=== PATIENT | female | born 1970 | race Caucasian/White ===

== ENCOUNTER → 2019-01-05 15:35 | Outpatient (CLI) | payer OTHER, SELFPAY ==
[2017-07-26 10:43] VITALS: BMI 26.4
== END ==
PROVIDERS: Family Provider Internal Medicine; PCP Internal Medicine; Referring Provider Otolaryngology Otolaryngology/Facial Plastic Surgery; Visit Provider Otolaryngology Otolaryngology/Facial Plastic Surgery
DX: J34.0 Abscess, furuncle and carbuncle of nose (principal)
CPT/HCPCS: 87070; 87077; 87205

== ENCOUNTER → 2019-07-04 15:41 | Outpatient (CLI) | payer OTHER, SELFPAY | PROVIDERS: Family Provider Internal Medicine; PCP Internal Medicine; Referring Provider Otolaryngology Otolaryngology/Facial Plastic Surgery; Visit Provider Otolaryngology Otolaryngology/Facial Plastic Surgery | DX: J02.9 Acute pharyngitis, unspecified (principal) | CPT/HCPCS: 87070; 87077 ==

== ENCOUNTER → 2024-04-20 | Outpatient (CLI) | payer SELFPAY | END | disposition home or self-care (01) | LOC: PSN 08:17 | PROVIDERS: PCP Internal Medicine; Referring Provider Internal Medicine; Visit Provider Internal Medicine | DX: R00.0 Tachycardia, unspecified (principal) | CPT/HCPCS: 93225; 93226 ==

== ENCOUNTER 2024-12-21 09:28 | Day surgery (SDC) | payer SELFPAY ==
[2024-12-21] MEDS: Lidocaine Jelly 2% 20 ML Syringe (URO-JET) 1 APPLIC (09:39)
[2024-12-21 09:41] VITALS: BP 134/77; PULSE 78; RESP 16; TEMP 36.9; O2SAT 100
== END 2024-12-21 10:10 | disposition home or self-care (01) ==
PROVIDERS: PCP Internal Medicine; Referring Provider Internal Medicine; Visit Provider Internal Medicine Gastroenterology
PROC: F00ZJWZ Instrumental Swallowing and Oral Function Assessment using Swallowing Equipment (ICD-10-PCS; CPT 43235; principal; 2024-12-21 09:25)
DX: R13.19 Other dysphagia (principal)
CPT/HCPCS: 91010

== ENCOUNTER 2025-04-02 05:23 | Day surgery (SDC) | payer SELFPAY ==
--- NOTE | 2025-03-28 15:18 | PAT.ANESEVAL ---
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 When Was Last Pacemaker Check QUESTION #4 FULL TEXT: You/Your Family Experience fever (hyperthermia) with Anesthesia Last Oral Intake Last Oral intake: Last Oral Intake NPO since Meds taken in AM with sips of water? Meds patient instructed to take am of surgery PONV PONV - youth program director: PONV - youth program director Female Yes 03/28/25 14:01 HX of Motion Sickness Yes 03/28/25 14:01 HX of N/V After Surgery Yes 03/28/25 14:01 Non-Smoker Yes 03/28/25 14:01 Duration of Surgery greater No 03/28/25 14:01 than 60 minutes Number of Risk Factors 4 03/28/25 14:01 PONV Score Severe Risk 03/28/25 14:01 Respiratory Assessment Respiratory Assessment - youth program director: Respiratory Tract Infection Hx - youth program director Hx Respiratory Tract Infection No 03/28/25 14:01 STOP Sleep Apnea STOP Sleep Apnea - youth program director: STOP Sleep Apnea - youth program director Hx Hypertension No 03/28/25 14:01 Hx Sleep Apnea No 03/28/25 14:01 CPAP BIPAP Do you snore loudly (louder Yes 03/28/25 14:01 than talking or can be heard Do you often feel tired/ Yes 03/28/25 14:01 fatigued/ sleepy during daytime? Has anyone observed you stop No 03/28/25 14:01 breathing during sleep? STOP Results Positive 03/28/25 14:01 QUESTION #5 FULL TEXT : Do you snore loudly (louder than talking or can be heard through closed doors)? 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 confused, unrespo /Reproduction History /Reproductive History - youth program director: /Reproductive Hx- youth program director Hx Now No 03/28/25 14:01 Gestational Age (in weeks): EDC: Hx Hx Para Hx Section SAB No 03/28/25 14:01 [facility], [facility] Medical History (Updated 03/28/25 @ 14:09 by Rosa Maria Phillips) Post-menopausal Wears glasses Wears contact lenses Arthritis Low iron Migraine headache Back pain Difficulty swallowing Gastric reflux Asthma History of pain when walking Non-smoker History of irregular heartbeat History of Holter monitoring Chest pain Osteopenia Home Medications ?Medication ?Instructions ?Recorded ?Last Taken ?Type ascorbic acid (vitamin C) 500 mg 500 mg PO QDAY 11/30/24 Unknown History capsule cholecalciferol (vitamin D3) 125 125 mcg PO QDAY 11/30/24 Unknown History mcg (5,000 unit) capsule mecobalamin (vitamin B12) 5,000 5,000 mcg PO DAILY 03/28/25 Unknown History mcg chewable tablet progesterone micronized 200 mg 225 mg PO QHS 03/28/25 Unknown History capsule Allergy/AdvReac Type Severity Reaction Status Date / Time No Known Allergies Allergy Verified 03/28/25 13:58 Family History Father Alcoholism Depression Mother Arthritis Rheumatoid arthritis Hypertension Respiratory disease Grandmother Cancer Surgical History (Updated 03/28/25 @ 14:09 by Rosa Maria Phillips) History of Hx of varicose vein ligation and stripping Social History Smoking Status: Never smoker alcohol intake: never substance use type: does not use what type of physical activity do you participate in: walking and weight training Audit: Pertinent Findings Pertinent Findings EKG Perinent findings: March 18, 2025. Sinus rhythm. Additional pertinent findings: Holter monitor. April 20, 2024. Base heart rate is normal sinus rhythm. No ventricular ectopic beats. Total of 9 SVE beats. No atrial fibrillation. Patient did not return a diary. Recommendation Anesthesia Recommendation Anesthesia recommendation: OPTIMIZED for anesthesia
[2025-04-02] VITALS (8 sets, daily range): BP systolic 118–135; BP diastolic 67–82; PULSE 65–72; RESP 16; TEMP 36.4–36.7; O2SAT 95–100; BMI 26.5
--- OUTSIDE RECORDS SUMMARY | 2025-04-02 05:26 | XMS RPT_ITS | CCD ---
Author Organization [facility] Care Team Providers Care Blocker [employer] Forms Name Role Phone Hebert ELKINSN, Kamila N Unavailable Unavailab le Hebert LAZARO, Kamila N Unavailable Unavailab le Hebert LAZARO, Kamila N Unavailable Unavailab Gisela Chauhan MD Primary Care Provider Gisela oCffey MD Primary Care Provider Gisela Coffey MD Primary Care Provider DR PERLA STANLEY DO Primary Care Unavailab CAROLANN Parmar MD Attending Unavail able Unavailable Primary Care Provider Unavailabl e PERLA STANLEY Referring Unavailable LIZETH ROSAS, DR SINHA Primary Care Physician [phone] Garcia FLAME CUTTING MACHINE OPERATOR.GROUP WORK PROGRAM DIRECTOR, Chery Unavailable Monserrat FLAME CUTTING MACHINE OPERATOR.HOUSE RN, Layla Unavailable Garcia FLAME CUTTING MACHINE OPERATOR.GROUP WORK PROGRAM DIRECTOR, Chery Unavailable Monserrat FLAME CUTTING MACHINE OPERATOR.HOUSE RN, Layla Unavailable Monserrat FLAME CUTTING MACHINE OPERATOR.HOUSE RN, Layla Unavailable Garcia FLAME CUTTING MACHINE OPERATOR.GROUP WORK PROGRAM DIRECTOR, Chery Unavailable Dr. Perla Stanley DO Primary Care Provider Dr. Perla Stanley DO Referring Provider Friend Dr. Alexx ROSAS Attending Provider Perla Stanley Referring Unavailable Alexx Garcia Attending Unavailable Perla Stanley Primary Care Unavailable Perla Stanley Referring Unavailable Perla Stanley Primary Care Unavailable Perla Stanley Attending Unavailable Lizeth, Perla Referring Unavailable Friend, Alexx Attending Unavailable Lizeth, Perla Primary Care Unavailable Lizeth, Perla Primary Care Unavailable Lizeth, Perla Referring Unavailable Friend, Alexx Attending Unavailable Lizeth, Perla Referring Unavailable Lizeth, Perla Primary Care Unavailable Lizeth, Perla Attending Unavailable Aubrey, [place] Attending Unavailable Lizeth, Perla Referring Unavailable Lizeth, Perla Primary Care Unavailable Lizeth, Perla Referring Unavailable Aubrey, [place] Attending Unavailable Lizeth, Perla Primary Care Unavailable Friend, Alexx Attending Unavailable Lizeth, Perla Primary Care Unavailable Lizeth, Perla Referring Unavailable Allergies Allergy Classification Reported Allergen(s) Allergy Type Date of Onset Reaction(s) Facility (12 sources) predniSONE Drug Allergy 1 Other: See Comments [facility] Work Phone: (12 sources) environmental [Other] Propensity to adverse reactions 5 [facility] Work Phone: (1 source) ALLERGIES NOT ON FILE; Translations: [ALLERGIES NOT ON FILE] Propensity to adverse reactions (disorder) [facility] 2 Repository Medications Current Medications Medication Drug Class(es) Dates Sig (Normalized) Sig (Original) albuterol 0.83 mg/ml inhalation solution (3 sources) beta2-Adrenergi c Agonist Start: 11-16-2022 End: 12-13-2023 take 2.5 mg by inhalation every four hours as needed albuterol (PROVENTIL) 2.5 mg /3 mL (0.083 %) nebulizer solution Use 3 mL via nebulizer every 4 hours as needed for wheezing/shortness of breath. Use over 5-15minutes. 75 mL 1 11/16/2022 12/13/2023 Discontinued Comment on above: Use 3 mL via nebuliz er every 4 hours as needed for wheezing/shortness of breath. Use over 5-15minutes. ascorbic acid 500 mg oral capsule (1 source) Vitamin C Start: 11-30-2024 take 1 capsule by mouth once daily Ascorbic Acid (Vitamin C) 500 mg capsule Active 500 mg PO daily November 30, 2024 12:00am cholecalciferol 0.125 mg oral capsule (1 source) Vitamin D Start: 11-30-2024 take 1 capsule by mouth once daily Cholecalciferol (Vitamin D3) 125 mcg (5,000 unit) capsule Active 125 ug PO daily November 30, 2024 12:00am COMPOUNDED PRESCRIPTION (12 sources) Start: 05-19-2018 COMPOUNDED PRESCRIPTION Dejon Franklin (Drink supplement--once daily) 05/19/2018 Active Start: 05-19-2018 COMPOUNDED PRE SCRIPTION Young Oleg Franklin (Drink supplement--once daily) 0 05/19/2018 Active Comment on above: Dejon Franklin (Drink supplement--once daily) cyclobenzaprine hydrochloride 10 mg oral tablet (12 sources) Muscle Relaxant Start: End: take 1 tablet by mouth every eight hours as needed cyclobenzaprine (FLEXERIL) 10 mg tablet Take 1 tablet by mouth three times daily as needed for muscle spasm. 30 tablet 2 11/16/2022 Active Comment on above: Take 1 tablet by randal th three times daily as needed for muscle spasm. doxycycline hyclate 100 mg oral tablet (1 source) Tetracycline-class Drug Start: End: take 1 tablet by mouth twice daily doxycycline (VIBRA-TABS) 100 mg tablet Take 1 tablet by mouth twice daily for 7 days. 14 tablet 0 11/24/2021 12/01/2021 Active Comment on above: Take 1 tablet by randal th twice daily for 7 days. drospirenone / Ethinyl Estradiol (15 sources) Progestin, Estrogen Start: 023 take 1 tablet by mouth once daily Drospirenone-Ethinyl Estradiol (LUIS 28) 3-0.02 mg per tablet Take 1 tablet by mouth once daily. active pills only, discard inactive pills 84 tablet 3 05/04/2023 Active Start: 08-12-2022 End: 05-04-2023 take 1 tablet by mouth once daily Drospirenone-Ethinyl Estradiol (LUIS 28) 3-0.02 mg per tablet Take 1 tablet by mouth once daily. active pills only, discard inactive pills 84 tablet 1 08/12/2022 05/04/2023 Discontinued Start: 08-12-2022 take 1 tablet by randal th once daily Drospirenone-Ethinyl Estradiol (LUIS 28) 3-0.02 mg per tablet Take 1 tablet by mouth once daily. active pills only, discard inactive pills 84 tablet 1 08/12/2022 Active Start: 04-28-2022 End: 08-12-2022 take 1 tablet by mouth once daily Drospirenone-Ethinyl Estradiol (LUIS 28) 3-0.02 mg per tablet take 1 tablet by mouth once daily ACTIVE PILLS ONLY, DISCARD INACTIVE PILLS 84 tablet 1 04/28/2022 08/12/2022 Discontinued Start: 08-18-2021 End: 04-28-2022 take 1 tablet by mouth once daily Drospirenone-Ethinyl Estradiol (LUIS 28) 3-0.02 mg per tablet Take 1 tablet by mouth once daily. active pills only, discard inactive pills 84 tablet 3 08/18/2021 04/28/2022 Discontinued Start: 08-18-2021 take 1 tablet by randal th once daily Drospirenone-Ethinyl Estradiol (LUIS 28) 3-0.02 mg per tablet Take 1 tablet by mouth once daily. active pills only, discard inactive pills 84 tablet 3 08/18/2021 Active Start: 11-23-2015 End: 11-30-2024 take 3 tablets by mouth once daily Drospirenone-Ethinyl Estradiol (Gianvi 3 Mg-0.02 Mg Tablet) 1 EACH tablet Discontinued 1 {tbl} PO DAILY November 23, 2015 12:00am November 30, 2024 9:56am Comment on above: Take 1 tablet by randal th once daily. active pills only, discard inactive pills take 1 tablet by randal th once daily ACTIVE PILLS ONLY, DISCARD INACTIVE PILLS famotidine 20 mg oral tablet (2 sources) Histamine-2 Receptor Antagonist Start: take 1 tablet by mouth once daily before mealtime Famotidine (Pepcid Ac) 20 mg tablet Active 20 mg PO daily November 30, 2024 12:00am Start: 04-13-2024 Pepcid 20 mg o ral tablet Dose : 20 mg = 1 tab(s), Oral, qDay, # 30 tab(s), 0 Refill(s) Start Date: 04/13/24 Status: Ordered Completed/Discontinued Medications Medication Drug Class(es) Dates Sig (Normalized) Sig (Original) azithromycin 250 mg oral tablet (1 source) Macrolide Antimicrobial Start: 07-26-2017 End: 07-31-2017 take 2 tablets by mouth once daily, then take 1 tablet by mouth once daily Azithromycin (Zithromax Z-Michael) 250 mg tablet Discontinued 250 mg PO .COMPLEX 6 July 26, 2017 1:00am July 30, 2017 1:00am July 31, 2017 1:06am 2 250 mg tabs on first day then 1 250mg tab daily next 4 days Ibuprofen (4 sources) Nonsteroidal Anti-inflammatory Drug End: 08-12-2022 ibuprofen (MOTRIN ORAL) Take by mouth. 08/12/2022 Discontinued (Other) End: 08-12-2022 ibuprofen (MOTRIN ORAL) Take by mouth. 0 08/12/2022 Discontinued (Other) ibuprofen (MOTRI N ORAL) Take by mouth. 0 Active Comment on above: Take by mouth. methylPREDNISolone 4 mg oral tablet (1 source) Corticosteroid Start: 2016 End: 2016 take 1 tablet by mouth once Methylprednisolone (Medrol (Michael)) 4 mg tablets,dose pack Discontinued 4 mg PO per package directions 21 July 26, 2017 1:00am July 30, 2017 1:00am July 31, 2017 1:06am naproxen 500 mg oral tablet (1 source) Nonsteroidal Anti-inflammatory Drug Start: 2015 End: 2024 take 1 tablet by mouth twice daily Naproxen 500 MG tablet Discontinued 500 mg PO TWICE A DAY November 23, 2015 12:00am November 30, 2024 9:50am Drug Treatment Unknown - unknown (1 source) No information available. Problems Active Problems Problem Classification Problem Date Documented Da te Episodic/Chronic Acute bronchitis (1 source) Acute bronchitis; Translations: [Acute bronchitis, unspecified] 08-08-2017 Episodic Chronic obstructive pulmonary disease and bronchiectasis (1 source) Bronchitis; Translations: [Bronchitis, not specified as acute or chronic] Episodic Diabetes mellitus without complication (4 sources) Type 2 diabetes mellitus without complication; Translations: [Type 2 diabetes mellitus without complications] Onset: 4 05-22-2024 Chronic Esophageal disorders (2 sources) Gastroesophageal reflux disease; Translations: [Gastro-esophageal reflux disease without esophagitis] Onset: 5 11-30-2024 Chronic Headache; including migraine (12 sources) Migraine; Translations: [Migraine, unspecified, not intractable, without status migrainosus] 07-27-2021 Chronic Menopausal disorders (1 source) Perimenopausal state; Translations: [Menopausal and female climacteric states] 11-08-2023 Chronic Nausea and vomiting (3 sources) Nausea; Translations: [Nausea] Onset: 5 11-30-2024 Episodic Nonspecific chest pain (1 source) Chest pain; Translations: [Chest pain, unspecified] Onset: Episodic Nutritional deficiencies (3 sources) Ascorbic acid deficiency; Translations: [Ascorbic acid deficiency] Onset: 5 11-30-2024 Episodic Other circulatory disease (1 source) Elevated blood-pressure reading without diagnosis of hypertension; Translations: [Elevated blood-pressure reading, without diagnosis of hypertension] 12-13-2023 Episodic Other gastrointestinal disorders (2 sources) Dysphagia; Translations: [Dysphagia, unspecified] 11-30-2024 Episodic Other gastrointestinal disorders (1 source) Dysphagia, unspecified; Translations: [Dysphagia, unspecified] Onset: Episodic Other lower respiratory disease (2 sources) Cough; Translations: [Cough] Episodic Other lower respiratory disease (1 source) Dyspnea on exertion; Translations: [Shortness of breath] 07-26-2017 Episodic Other non-traumatic joint disorders (1 source) Multiple joint pain; Translations: [Pain in unspecified joint] 12-13-2023 Episodic Other screening for suspected conditions (not mental disorders or infectious disease) (8 sources) Patient encounter status; Translations: [Encounter for screening mammogram for malignant neoplasm of breast] Episodic Other upper respiratory infections (1 source) Upper respiratory infection; Translations: [Acute upper respiratory infection, unspecified] 07-26-2017 Episodic Spondylosis; intervertebral disc disorders; other back problems (12 sources) Cervical disc disorder with radiculopathy; Translations: [Cervical disc disorder with radiculopathy, unspecified cervical region] 03-15-2011 Episodic Unclassified (2 sources) Patient encounter status 10-09-2024 Past or Other Problems Problem Classification Problem Date Documented Da te Episodic/Chronic Cardiac dysrhythmias (1 source) Tachycardia, unspecified; Translations: [Tachycardia, unspecified] Onset: 05-15-2024 Episodic Other bone disease and musculoskeletal deformities (13 sources) Osteopenia; Translations: [Other specified disorders of bone density and structure, unspecified site] Onset: 01-05-2012 07-27-2021 Episodic Other ear and sense organ disorders (3 sources) Otalgia, unspecified ear; Translations: [Otalgia, unspecified ear] Onset: 01-03-2017 01-03-2017 Episodic Other gastrointestinal disorders (1 source) Other dysphagia; Translations: [Other dysphagia] Onset: 12-26-2024 Episodic Other non-traumatic joint disorders (12 sources) Chronic pain of right upper limb; Translations: [Pain in right shoulder] Onset: 09-25-2018 05-29-2019 Episodic Otitis media and related conditions (2 sources) Serous otitis media; Translations: [Unspecified nonsuppurative otitis media, left ear] Onset: 01-03-2017 01-03-2017 Episodic Results Test Name Value Interpretation Reference Range Facility MR/PATAlejandrina 03-28-2025 MR/PAT.[facility] Medical Records Department [address] [place] [address] PAT - Anesthesia 03/28/25 1518 MR#: [id number] Acct: [id number] Name: AKUA KATZ Rep #: [id number] : 1970 54 From: Arnol Samuels MD PCP: Dr. 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 When Was Last Pacemaker Check QUESTION #4 FULL TEXT: You/Your Family Experience fever (hyperthermia) with Anesthesia Last Oral Intake Last Oral intake: Last Oral Intake NPO since Meds taken in AM with sips of water? Meds patient instructed to take am of surgery PONV PONV - truck supervisor: PONV - truck supervisor Female Yes 03/28/25 14:01 HX of Motion Sickness Yes 03/28/25 14:01 HX of N/V After Surgery Yes 03/28/25 14:01 Non-Smoker Yes 03/28/25 14:01 Duration of Surgery greater No 03/28/25 14:01 than 60 minutes Number of Risk Factors 4 03/28/25 14:01 PONV Score Severe Risk 03/28/25 14:01 Respiratory Assessment Respiratory Assessment - truck supervisor: Respiratory Tract Infection Hx - truck supervisor Hx Respiratory Tract Infection No 03/28/25 14:01 STOP Sleep Apnea STOP Sleep Apnea - truck supervisor: STOP Sleep Apnea - truck supervisor Hx Hypertension No 03/28/25 14:01 Hx Sleep Apnea No 03/28/25 14:01 CPAP BIPAP Do you snore loudly (louder Yes 03/28/25 14:01 than talking or can be heard Do you often feel tired/ Yes 03/28/25 14:01 fatigued/ sleepy during daytime? Has anyone observed you stop No 03/28/25 14:01 breathing during sleep? STOP Results Positive 03/28/25 14:01 QUESTION #5 FULL TEXT : Do you snore loudly (louder than talking or can be heard through closed doors)? Tobacco Use History Tobacco Use History - truck supervisor: Tobacco Use History - truck supervisor Tobacco Use Smoking Status Never smoker 03/28/25 14:01 Hx Tobacco Use No 03/28/25 14:01 Years Smoking Packs Smoked per Day Smoking Cessation Date was within the last 15 years Hx Smoking Cessation Date Hx Smoking Cessation Counseling Hematologic Medial History Hematologic Hx - truck supervisor: Hematologic Medical Hx - vocational placement specialist Hx of Blood Transfusion No 03/28/25 14:01 Hx of Transfusion in last 3 No 03/28/25 14:01 Months Date of Last Transfusion (if within last 3 months) Ever experience any problems No 03/28/25 14:01 with transfusion(s)? Specify any problems Hx of Preganancy in last 3 No 03/28/25 14:01 Months Nurse Filling Out Transfusion DSCHRIBER 03/28/25 14:01 Questions: Date: 03/28/25 03/28/25 14:01 Time: 14:03 08/28/25 14:01 Patient unable to answer at this time (ie. confused, unrespo /Reproductio n History /Reproductiv e History - truck supervisor: /Reproductiv e Hx- truck supervisor Hx Now No 03/28/25 14:01 Gestational Age (in weeks): EDC: Hx Hx Para Hx Section SAB No 03/28/25 14:01 [facility] Medical History (Updated 03/28/25 @ 14:09 by Rosa Maria Phillips) Post-menopausal Wears glasses Wears contact lenses Arthritis Low iron Migraine headache Back pain Difficulty swallowing Gastric reflux Asthma History of pain when walking Non-smoker History of irregular heartbeat History of Holter monitoring Chest pain Osteopenia Home Medications ???Medication ???Instructions ???Recorded ???Last Taken ???Type ascorbic acid (vitamin C) 500 mg 500 mg PO QDAY 11/30/24 Unknown Hi story capsule cholecalciferol (vitamin D3) 125 125 mcg PO QDAY 11/30/24 Unknown H istory mcg (5,000 unit) capsule mecobalamin (vitamin B12) 5,000 5,000 mcg PO DAILY 03/28/25 Unknow n History mcg chewable tablet progesterone micronized 200 mg 225 mg PO QHS 03/28/25 Unknown His tory capsule Allergy/AdvReac Type Severity Reaction Status Date / Time No Known Allergies Allergy Verified 03/28/25 13:58 Family History Father Alcoholism Depression Mother Arthritis Rheumatoid arthritis (more content not included)... Normal [facility] CNCOon 01-25-2025 CNCO Letter Text Normal [facility] Gastroenterology Visit Repor ton 01-03-2025 Gastroenterology Visit Report [facility] Gastroenterology [address] [place] [address] OFFICE VISIT Date of Service: 01/03/25 MR#: [id number] Acct: [id number] Name: AKUA KATZ Rep #: [id number] : 1970 Provider: Alexx Garcia DO Age/Sex: 54/F Location: [facility] [place] Status: Signed Intake Vital Signs 07/26/17 10:43 Height 5 ft 4 in Intake Visit Reasons: Test Result Allergies No Known Allergies Allergy (Verified 01/03/25 14:33) Medications ???Medication ???Instructions ???Recorded ???Confirmed ???Type ascorbic acid (vitamin C) 500 mg 500 mg PO QDAY 11/30/24 01/03/25 H istory capsule cholecalciferol (vitamin D3) 125 125 mcg PO QDAY 11/30/24 01/03/25 History mcg (5,000 unit) capsule famotidine 20 mg tablet (Pepcid AC) 20 mg PO QDAY 11/30/24 01/03/25 History PFSH Medical History Osteopenia Hypertension Family History Father Alcoholism Depression Mother Arthritis Rheumatoid arthritis Hypertension Respiratory disease Grandmother Cancer Social History Smoking Status: Never smoker alcohol intake: never substance use type: does not use what type of physical activity do you participate in: walking and weight training HPI HPI Details: AKUA KATZ, is a 54 F who presents to the office today for follow up. *BGI established 5.2.25 pt presents with worsening acid reflux. Is currently taking Pepcid 20mg and reports this is not effective for her symptoms. Reports that when she is laying down she feels like she is choking on acid and that it stays in her throat. manometry 5.23.25 normal OV 6.5.25 pt reports ongoing intermittent difficulty swallowing. Here to discuss test results. ROS Const Constitutional: No fatigue, fever(s) or weight change ENT ENT: Positive for difficulty swallowing Gastro GI: Positive for difficulty swallowing; No abdominal pain, belching, bloating, change in bowel habits, change in stool character, coffee ground emesis, constipation, cramping, diarrhea, heartburn, feeling full early, excessive flatus, incontinent of stools, Vomiting blood/hematemesis, Blood in stool, loose stools, Black,tarry stools, nausea/dyspepsia, pain with swallowing, vomiting or other Musc Musculoskeletal: Positive for back pain and sciatica; No joint pain Skin Skin: No yellowing of the eye or itchy eyes Psych Psychiatric: No anxiety and No depression Endo Endocrine: No fatigue or weight change Aller/Imm Allergy/Immunologic: No itchy eyes John/Lymp Hematologic/Lymphatic : No easy bleeding or easy bruising Assessment and Plan Assessment and Plan (1) Gastroesophageal reflux disease: (2) Dysphagia: Status: Acute (3) Nausea: Status: Acute (4) Vitamin C deficiency: Status: Acute Plan: Very pleasant 54-year-old with past medical history of intermittent esophageal dysphagia. She has no history of previous CVA, neck trauma, surgery. She does have a history of possible gastroesophageal reflux disease. She was placed on omeprazole for 3 months by her physician. She actually got better but when she stopped the medication when she stopped the medication her symptoms came back. Recommending esophageal manometry because her symptoms sound more like esophageal dysmotility disorder than reflux disease. If that is normal then we will do EGD with Sequeira study. Plan Her esophageal manometry was normal. We will set her up for an EGD with Sequeira study. Coding Level of Care Code Off vis,est,level 4 Diagnoses Gastroesophageal reflux disease K21.9 Dysphagia R13.10 Nausea R11.0 Vitamin C deficiency E54 01/03/25 1758 Date Alexx Membreno Signature: Date (if applicable) CC: Normal [facility] Gastroenterology Visit Repor ton 11-30-2024 Gastroenterology Visit Report [facility] Gastroenterology [address] [place] [address] OFFICE VISIT Date of Service: 11/30/24 MR#: [id number] Acct: [id number] Name: AKUA KATZ Rep #: [id number] : 1970 Provider: Alexx Garcia DO Age/Sex: 54/F Location: [facility] Status: Signed Intake Intake Visit Reasons: Acid reflux Allergies No Known Allergies Allergy (Verified 07/26/17 10:44) Medications ???Medication ???Instructions ???Recorded ???Confirmed ???Type ascorbic acid (vitamin C) 500 mg 500 mg PO QDAY 11/30/24 11/30/24 H istory capsule cholecalciferol (vitamin D3) 125 125 mcg PO QDAY 11/30/24 11/30/24 History mcg (5,000 unit) capsule famotidine 20 mg tablet (Pepcid AC) 20 mg PO QDAY 11/30/24 11/30/24 History PFSH Medical History (Updated 11/30/24 @ 11:[address] Coffey Friend, DO) Osteopenia Hypertension Family History (Updated 11/30/24 @ 10:29 by Aye Diaz) Father Alcoholism Depression Mother Arthritis Rheumatoid arthritis Hypertension Respiratory disease Grandmother Cancer Social History (Updated 11/30/24 @ 10:26 by Aye Diaz) Smoking Status: Never smoker alcohol intake: never substance use type: does not use what type of physical activity do you participate in: walking and weight training HPI HPI Details: AKUA KATZ, is a 54 F who presents to the office today for follow up. *BGI established 5.2.25 pt presents with worsening acid reflux. Is currently taking Pepcid 20mg and reports this is not effective for her symptoms. Reports that when she is laying down she feels like she is choking on acid and that it stays in her throat. ROS Const Constitutional: No fatigue, fever(s) or weight change ENT ENT: Positive for difficulty swallowing Gastro GI: Positive for heartburn, difficulty swallowing and nausea/dyspepsia; No abdominal pain, belching, bloating, change in bowel habits, change in stool character, coffee ground emesis, constipation, cramping, diarrhea, feeling full early, excessive flatus, incontinent of stools, Vomiting blood/hematemesis, Blood in stool, loose stools, Black,tarry stools, pain with swallowing, vomiting or other Musc Musculoskeletal: Positive for joint pain, back pain, stiffness, Arthritis and sciatica Skin Skin: No yellowing of the eye or itchy eyes Psych Psychiatric: No anxiety and No depression Endo Endocrine: No fatigue or weight change Aller/Imm Allergy/Immunologic: No itchy eyes John/Lymp Hematologic/Lymphatic : No easy bleeding or easy bruising Exam Const General: cooperative, healthy appearing, comfortable and no acute distress Orientation: alert, awake and oriented x3 Assessment and Plan Assessment and Plan (1) Gastroesophageal reflux disease: (2) Dysphagia: Status: Acute (3) Nausea: Status: Acute (4) Vitamin C deficiency: Status: Acute Plan: Very pleasant 54-year-old with past medical history of intermittent esophageal dysphagia. She has no history of previous CVA, neck trauma, surgery. She does have a history of possible gastroesophageal reflux disease. She was placed on omeprazole for 3 months by her physician. She actually got better but when she stopped the medication when she stopped the medication her symptoms came back. Recommending esophageal manometry because her symptoms sound more like esophageal dysmotility disorder than reflux disease. If that is normal then we will do EGD with Sequeira study. Orders: Orders ANCA Today E54 - Ascorbic acid deficiency, R11.0 - Nausea, R13.10 - Dysphagia, unspecified Celiac AB,Comprehensive Today E54 - Ascorbic acid deficiency, R11.0 - Nausea, R13.10 - Dysphagia, unspecified LDH Today E54 - Ascorbic acid deficiency, R11.0 - Nausea, R13.10 - Dysphagia, unspecified CRP Today E54 - Ascorbic acid deficiency, R11.0 - Nausea, R13.10 - Dysphagia, unspecified Erythrocyte Sed Rate Today E54 - Ascorbic acid deficiency, R11.0 - Nausea, R13.10 - Dysphagia, unspecified [facility] Misc. 2 Today E54 - Ascorbic acid deficiency, R11.0 - Nausea, R13.10 - Dysphagia, unspecified Comprehensive Metabolic Profil Today E54 - Ascorbic acid deficiency, R11.0 - Nausea, R13.10 - Dysphagia, unspecified CBC W/Diff, Automated Today E54 - Ascorbic acid deficiency, R11.0 - Nausea, R13.10 - Dysphagia, unspecified IBD Expanded Profile Today E54 - Ascorbic acid deficiency, R11.0 - Nausea, R13.10 - Dysphagia, unspecified [facility] Comprehensive Panel Today E54 - Ascorbic acid deficiency, R11.0 - Nausea, R13.10 - Dysphagia, unspecified Allergen, Food Profile 14 Today E54 - Ascorbic acid deficiency, R11.0 - Nausea, R13.10 - Dysphagia, unspecified Vitamin B12 Today E54 - Ascorbic acid deficiency, R11.0 - Nausea, R13.10 - Dysphagia, unspecified FOLATES,SERUM (FOLIC ACID) Today E54 - Ascorbic acid deficiency, R11.0 (more content not included)... [facility] AKUA KATZ ([id number]) 1970 F Date Time Provider Department 09/27/24 ROSSY FLANAGAN During your visit today, we recorded the following information about you: Elayne Shelton 09/27/2024 11:20 AM Signed Patient coming in for Annual with she would like to have her mammogram on same day but order will . Could you please add her order. Thank you Martina Graham RN 09/27/2024 11:32 AM Signed Screening mammogram order pending. Please file and will forward to PSS to get Pt scheduled. MANUEL Burns Karmon, MD 09/27/2024 11:36 AM Signed Filed. MD Najma Castelan Stephanie 09/28/2024 10:59 AM Signed Left message with patient's spouse to return call. When she calls, please schedule mammogram. [facility] submitted. Elayne Garcia 11/26/2024 9:53 AM Signed Spoke with patient, patient stated that she does not want to schedule mammogram order at this time Allergies As of Date: 09/27/2024 Noted Allergy Reaction environmental [Other] 04/08/2005 Comments: seasonal PREDNISONE 10/26/2010 14 - Other: See Comments Comments: Migraine headaches Date Reviewed: 11/08/2023 Reviewed by: Parul Aj MA - Fully Assessed Primary Visit Diagnosis:Breast screening [Z12.39] Order(s):TOÑA SCREENING W ADRIEL [[id number]] Order #: [id number] FUTURE Prescriptions as of 12/29/2024 - Drospirenone-Ethinyl Estradiol (LUIS 28) 3-0.02 mg per tablet Take 1 tablet by mouth once daily. active pills only, discard inactive pills - cyclobenzaprine (FLEXERIL) 10 mg tablet Take 1 tablet by mouth three times daily as needed for muscle spasm. - COMPOUNDED PRESCRIPTION [facility] (Drink supplement--once daily) Problem List As Of Date 09/27/2024 Noted Resolved Cervical disc disorder with radiculopathy [M50.* Migraine headache [G43.909] Osteopenia [M85.80] 01/05/2012 Chronic right shoulder pain [M25.511, G89.29] 09/25/2018 Encounter Status:Closed by ELAYNE SHELTON on 12/29/24 [facility] 07-16-2024 [facility] Telephone (INTMWS) AUKA KATZ ([id number]) 1970 F Date Time Provider Department 07/16/24 GISELA COFFEY INTWS During your visit today, we recorded the following information about you: Gisela Coffey MD 07/16/2024 4:10 PM Signed Received a call from Dr. Perla Stanley's office to discuss Holter monitor and EKG. Started following with Dr. Stanley this year. Fatigue and palpitations Has to stop what she is doing to rest and restore. Sleeps, exercises. Allergies As of Date: 07/16/2024 Noted Allergy Reaction environmental [Other] 04/08/2005 Comments: seasonal PREDNISONE 10/26/2010 14 - Other: See Comments Comments: Migraine headaches Date Reviewed: 11/08/2023 Reviewed by: Parul Aj MA - Fully Assessed Prescriptions as of 10/18/2024 - Drospirenone-Ethinyl Estradiol (LUIS 28) 3-0.02 mg per tablet Take 1 tablet by mouth once daily. active pills only, discard inactive pills - cyclobenzaprine (FLEXERIL) 10 mg tablet Take 1 tablet by mouth three times daily as needed for muscle spasm. - COMPOUNDED PRESCRIPTION [facility] (Drink supplement--once daily) Problem List As Of Date 07/16/2024 Noted Resolved Cervical disc disorder with radiculopathy [M50.* Migraine headache [G43.909] Osteopenia [M85.80] 01/05/2012 Chronic right shoulder pain [M25.511, G89.29] 09/25/2018 Encounter Status:Closed by GISELA COFFEY on 10/18/[address] [facility] [address] CARDIAC SCORING WO IV CON TRASTon 05-22-2024 CT CARDIAC SCORING WO IV CONTRAST Interpreted By: Leonardo Castro, STUDY: CT CARDIAC SCORING WO IV CONTRAST; 05/22/2024 10:57 am INDICATION: Signs/Symptoms:CARDIA C SCREENING HIGH RISK CAD TYPE 2 DM. ,E11.9 Type 2 diabetes mellitus without complications (Multi) COMPARISON: None. ACCESSION NUMBER(S): [id number] ORDERING CLINICIAN: PERLA STANLEY TECHNIQUE: Using prospective ECG gating, CT scan of the coronary arteries was performed without intravenous contrast. Coronary calcium scoring was performed according to the method of Agatston. FINDINGS: The score and distribution of calcium in the coronary arteries is as follows: LM 0 LAD 0 LCx 0 RCA 0 Total 0 The visualized mid/lower ascending thoracic aorta measures 3.1 cm in diameter. The heart is normal in size. No pericardial effusion is present. No gross evidence of mediastinal or hilar lymphadenopathy or masses is identified. The visualized segments of the lungs are normally expanded. The visualized subdiaphragmatic structures appear intact. IMPRESSION: 1. Coronary artery calcium score of 0*. *Coronary artery calcium scoring may be helpful in predicting the risk for future coronary heart disease events. According to the [place] [employer] Clinical Expert Consensus Task Force, such testing provides important prognostic information in patients with more than one coronary heart disease risk factor. The coronary artery calcium score correlates with the annual risk of a non-fatal myocardial infarction or coronary heart disease . Coronary artery score Annual Risk 0-99 0.4% 100-399 1.3% >400 2.4% These three breakpoints correspond to lower, intermediate and high risk states for future coronary events. Such information should be used, along with appropriate clinical judgment, to make decisions regarding the intensity of risk factor management strategies to treat blood lipids and to modify other non-lipid coronary risk factors. Reference: Crys P et al. Circulation. 2007; 115:402-426 MACRO: None Signed by: Leonardo Castro 05/23/2024 8:28 AM Dictation workstation: [id number] [facility] .Auto Diffon 04-13-2024 Basophil, Absolute 0.1 10 3/mcL Normal 0.0-0.2 [facility] Comment on above: Performed By: #### C TROY, DAVION DEJESUSS, MDW, GFR, ANEU, BMP #### [address] [address] Basophils/100 WBC (Bld) 0.8 % Normal 0.0-2.5 [facility] Comment on above: Performed By: #### C BC, OLEG, DAVIONS, MDW, GFR, ANEU, BMP #### [address] [address] Eosinophil, Absolute 0.1 10 3/mcL Normal 0.0-0.4 [facility] Comment on above: Performed By: #### C BC, ADIFF, TROPHS, MDW, GFR, ANEU, BMP #### [address] [address] Eosinophils/100 WBC (Bld) 0.9 % Normal 0.0-7.0 [facility] Comment on above: Performed By: #### C BC, ADALEXANDRA, TROPHS, MDW, GFR, ANEU, BMP #### [address] [address] Lymphocyte, Absolute 1.6 10 3/mcL Normal 0.8-3.9 [facility] Comment on above: Performed By: #### C BC, ADIFF, TROPHS, MDW, GFR, ANEU, BMP #### [address] [address] Lymphocytes/100 WBC (Bld) 19.9 % Normal 10.0-50.0 [facility] Comment on above: Performed By: #### C OLEG SIMMONS TROPHS, MDW, GFR, ANEU, BMP #### [address] [address] Monocyte, Absolute 0.4 10 3/mcL Normal 0.2-1.0 [facility] Comment on above: Performed By: #### C OLEG SIMMONS TROPHS, MDW, GFR, ANEU, BMP #### [address] [address] Monocytes/100 WBC (Bld) 5.1 % Normal 1.7-13.0 [facility] Comment on above: Performed By: #### C OLEG SIMMONS TROPHS, MDW, GFR, ANEU, BMP #### [address] [address] Neutrophils/100 WBC (Bld) 73.3 % Normal 37.0-80.0 [facility] Comment on above: Performed By: #### C OLEG SIMMONS TROPHS, MDW, GFR, ANEU, BMP #### [address] [address] .GFRon 04-13-2024 GFR Non- 101 ml/min/1.73sqm Normal [facility] Comment on above: Result Comment: GFR Population mean for , Non- Americans Ages 20-29 = 116 mL/min/1.73 sq.m. Ages 30-39 = 107 mL/min/1.73 sq.m. Ages 40-49 = 99 mL/min/1.73 sq.m. Ages 50-59 = 93 mL/min/1.73 sq.m. Ages 60-69 = 85 mL/min/1.73 sq.m. Ages 70+ = 75 mL/min/1.73 sq.m. Chronic Kidney Disease: Less than 60 mL/min/1.73 square meters End Stage Renal Disease: Less than 15 mL/min/1.73 square meters Performed By: #### C OLEG SIMMONS TROPHS, MDW, GFR, ANEU, BMP #### [address] [address] GFR 122 ml/min/1.73sqm Normal [facility] Comment on above: Result Comment: GFR Population mean for , Non- Americans Ages 20-29 = 116 mL/min/1.73 sq.m. Ages 30-39 = 107 mL/min/1.73 sq.m. Ages 40-49 = 99 mL/min/1.73 sq.m. Ages 50-59 = 93 mL/min/1.73 sq.m. Ages 60-69 = 85 mL/min/1.73 sq.m. Ages 70+ = 75 mL/min/1.73 sq.m. Chronic Kidney Disease: Less than 60 mL/min/1.73 square meters End Stage Renal Disease: Less than 15 mL/min/1.73 square meters Performed By: #### C TROY, OLEG, DAVIONS, MDW, GFR, ANEU, BMP #### [address] [address] .MDWon 04-13-2024 Monocyte Distribution Width 21.30 High 0.00-20.00 [facility] Comment on above: Result Comment: For adults in ED, MDW>20.0 may be associated with a higher risk of sepsis during the first 12hrs of hospital admission Performed By: #### C OLEG SIMMONS TROPHS, MDW, GFR, ANEU, BMP #### [address] [address] .NEUABSon 04-13-2024 Neutrophil, Absolute 5.7 10 3/mcL Normal 2.9-6.2 [facility] Comment on above: Performed By: #### C BC, DAVION DEJESUSS, MDW, GFR, ANEU, BMP #### [address] [address] BMPon 04-13-2024 BUN/Creatinine Ratio 24 ratio Normal 7-27 [facility] Comment on above: Performed By: #### C BC, OLEG, DAVIONS, MDW, GFR, ANEU, BMP #### [address] [address] Calcium [Mass/Vol] 9.8 mg/dL Normal 8.4-10.2 [facility] Comment on above: Performed By: #### C OLEG SIMMONS TROPHS, MDW, GFR, ANEU, BMP #### [address] [address] Chloride [Moles/Vol] 102 mmol/L Normal 98-107 [facility] Comment on above: Performed By: #### C OLEG SIMMONS TROPHS, MDW, GFR, ANEU, BMP #### [address] [address] CO2 [Moles/Vol] 29 mmol/L Normal 22-29 [facility] Comment on above: Performed By: #### C OLEG SIMMONS TROPHS, MDW, GFR, ANEU, BMP #### [address] [address] Creatinine [Mass/Vol] 0.62 mg/dL Normal 0.55-1.02 [facility] Comment on above: Result Comment: Test ing performed on Siemens Dimension EXL analyzer using a modified kinetic Luzmaria technique. Performed By: #### C OLEG SIMMONS TROPHS, MDW, GFR, ANEU, BMP #### [address] [address] Electrolyte Balance 7.0 mEq/L Normal 4.0-15.[address] [facility] Comment on above: Performed By: #### C OLEG SIMMONS TROPHS, MDW, GFR, ANEU, BMP #### [address] [address] Glucose [Mass/Vol] 95 mg/dL Normal 70-105 [facility] Comment on above: Performed By: #### C OLEG SIMMONS TROPHS, MDW, GFR, ANEU, BMP #### [address] [address] Potassium [Moles/Vol] 5.0 mmol/L Normal 3.5-5.1 [facility] Comment on above: Performed By: #### C OLEG SIMMONS TROPHS, MDW, GFR, ANEU, BMP #### [address] [address] Sodium [Moles/Vol] 138 mmol/L Normal 136-145 [facility] Comment on above: Performed By: #### C TROY, JEN DEJESUS, W, GFR, ANEU, BMP #### [address] [address] Urea nitrogen [Mass/Vol] 15 mg/dL Normal 7-18 [facility] Comment on above: Performed By: #### C TROY, JEN DEJESUS, W, GFR, ANEU, BMP #### [address] [address] CBCon 04-13-2024 Erythrocyte distribution width (RBC) [Ratio] 13.4 % Normal 11.5-14.5 [facility] Comment on above: Performed By: #### C OLEG SIMMONS TROPHS, MDW, GFR, ANEU, BMP #### [address] [address] Hematocrit (Bld) [Volume fraction] 40.4 % Normal 37.0-47.0 [facility] Comment on above: Performed By: #### C OLEG SIMMONS TROPHS, W, GFR, ANEU, BMP #### [address] [address] Hgb 13.7 G/dL Normal 12.0-16.0 [facility] Comment on above: Performed By: #### C OLEG SIMMONS TROPHS, MDW, GFR, ANEU, BMP #### [address] [address] MCH (RBC) [Entitic mass] 30.3 pg Normal 27.0-31.2 [facility] Comment on above: Performed By: #### C OLEG SIMMONS TROPHS, W, GFR, ANEU, BMP #### [address] [address] MCHC 34.0 G/dL Normal 33.0-37.0 [facility] Comment on above: Performed By: #### C TROY, OLEG, DAVIONS, MDW, GFR, ANEU, BMP #### [address] [address] MCV (RBC) [Entitic vol] 89.1 fL Normal 80.0-94.0 [facility] Comment on above: Performed By: #### C TROY, OLEG, DAVIONS, MDW, GFR, ANEU, BMP #### [address] [address] Platelet 340 10 3/mcL Normal 130-400 [facility] Comment on above: Performed By: #### C TROY, OLEG, DAVIONS, MDW, GFR, ANEU, BMP #### [place] [address] Platelet mean volume (Bld) [Entitic vol] 7.9 fL Normal 7.4-10.4 [facility] Comment on above: Performed By: #### C TROY, JEN DEJESUS, MDW, GFR, ANEU, BMP #### [address] [address] RBC 4.54 10 6/mcL Normal 4.20-5.40 [facility] Comment on above: Performed By: #### C TROY, OLEG, DAVIONS, MDW, GFR, ANEU, BMP #### [address] [address] WBC 7.8 10 3/mcL Normal 4.6-10.8 [facility] Comment on above: Performed By: #### C TROY, OLEG, DAVIONS, MDW, GFR, ANEU, BMP #### [address] [address] LABORATORYOrdered By: SYSTEM SYSTEM on 04-13-2024 Troponin I.cardiac DL <= 0.01 ng/mL [Mass/Vol] ng/L Normal 0 - 51 ng/L AO ADM SS Comment on above: Interpretive Data: H igh Sensitive Troponin I Reference Ranges: Female: 0-51 ng/L Male: 0-76 ng/L Testing performed on Dimension EXL using a homogeneous sandwich chemiluminescent immunoassay based on MagForce technology. Basophils (Bld) [#/Vol] 0.1 103/mcL Normal 0.0 - 0.2 10^3/mcL AO Workflow SS Basophils/100 WBC (Bld) 0.8 % Normal 0.0 - 2.5 % AO Workflow SS Calcium [Mass/Vol] 9.8 mg/dL Normal 8.4 - 10. 2 mg/dL AO ADM SS Chloride [Moles/Vol] 102 mmol/L Normal 98 - 10 7 mmol/L AO ADM SS CO2 [Moles/Vol] 29 mmol/L Normal 22 - 29 mmol/L AO ADM SS Creatinine [Mass/Vol] 0.62 mg/dL Normal 0.55 - 1.02 mg/dL AO ADM SS Comment on above: Interpretive Data: T esting performed on [employer] Dimension EXL analyzer using a modified kinetic Luzmaria technique. Electrolyte Balance 7.0 mEq/L Normal 4.0 - 15 .0 mEq/L AO ADM SS Eosinophil, Absolute 0.1 103/mcL Normal 0.0 - 0 .4 10^3/mcL AO Workflow SS Eosinophils/100 WBC (Bld) 0.9 % Normal 0.0 - 7.0 % AO Workflow SS Erythrocyte distribution width (RBC) [Ratio] 13.4 % Normal 11.5 - 14.5 % AO Workflow SS GFR/1.73 sq M.predicted among blacks MDRD (S/P/Bld) [Vol rate/Area] 122 ml/min/1.73sqm Invalid Interpretation Code AO Chemistry S Comment on above: Interpretive Data: GFR Population mean for , Non- Americans Ages 20-29 = 116 mL/min/1.73 sq.m. Ages 30-39 = 107 mL/min/1.73 sq.m. Ages 40-49 = 99 mL/min/1.73 sq.m. Ages 50-59 = 93 mL/min/1.73 sq.m. Ages 60-69 = 85 mL/min/1.73 sq.m. Ages 70+ = 75 mL/min/1.73 sq.m. Chronic Kidney Disease: Less than 60 mL/min/1.73 square meters End Stage Renal Disease: Less than 15 mL/min/1.73 square meters GFR/1.73 sq M.predicted among non-blacks MDRD (S/P/Bld) [Vol rate/Area] 101 ml/min/1.73sqm Invalid Interpretation Code AO Chemistry S Comment on above: Interpretive Data: GFR Population mean for , Non- Americans Ages 20-29 = 116 mL/min/1.73 sq.m. Ages 30-39 = 107 mL/min/1.73 sq.m. Ages 40-49 = 99 mL/min/1.73 sq.m. Ages 50-59 = 93 mL/min/1.73 sq.m. Ages 60-69 = 85 mL/min/1.73 sq.m. Ages 70+ = 75 mL/min/1.73 sq.m. Chronic Kidney Disease: Less than 60 mL/min/1.73 square meters End Stage Renal Disease: Less than 15 mL/min/1.73 square meters Glucose [Mass/Vol] 95 mg/dL Normal 70 - 105 mg/dL AO ADM SS Hematocrit (Bld) [Volume fraction] 40.4 % Normal 37.0 - 47.0 % AO Workflow SS Hemoglobin (Bld) [Mass/Vol] 13.7 G/dL Normal 12.0 - 16.0 G/dL AO Workflow SS Lymphocytes (Bld) [#/Vol] 1.6 103/mcL Normal 0.8 - 3.9 10^3/mcL AO Workflow SS Lymphocytes/100 WBC (Bld) 19.9 % Normal 10.0 - 50.0 % AO Workflow SS MCH (RBC) [Entitic mass] 30.3 pg Normal 27.0 - 31.2 pg AO Workflow SS MCHC 34.0 G/dL Normal 33.0 - 37.0 G/dL AO Workflow SS MCV (RBC) [Entitic vol] 89.1 fL Normal 80.0 - 94.0 fL AO Workflow SS Monocyte distribution width Auto (Bld) [Entitic vol] 21.30 1 High 0.00 - 20.00 AO Workflow SS Comment on above: Result Comment: For adults in ED, MDW>20.0 may be associated with a higher risk of sepsis during the first 12hrs of hospital admission Monocytes (Bld) [#/Vol] 0.4 103/mcL Normal 0.2 - 1.0 10^3/mcL AO Workflow SS Monocytes/100 WBC (Bld) 5.1 % Normal 1.7 - 13.0 % AO Workflow SS Neutrophils (Bld) [#/Vol] 5.7 103/mcL Normal 2.9 - 6.2 10^3/mcL AO Workflow SS Neutrophils/100 WBC (Bld) 73.3 % Normal 37.0 - 80.0 % AO Workflow SS Platelet mean volume (Bld) [Entitic vol] 7.9 fL Normal 7.4 - 10.4 fL AO Workflow SS Platelets (Bld) [#/Vol] 340 103/mcL Normal 130 - 400 10^3/mcL AO Workflow SS Potassium [Moles/Vol] 5.0 mmol/L Normal 3.5 - 5.1 mmol/L AO ADM SS RBC (Bld) [#/Vol] 4.54 106/mcL Normal 4.20 - 5.4 0 10^6/mcL AO Workflow SS Sodium [Moles/Vol] 138 mmol/L Normal 136 - 145 mmol/L AO ADM SS Troponin I.cardiac DL <= 0.01 ng/mL [Mass/Vol] ng/L Normal 0 - 51 ng/L AO ADM SS Comment on above: Interpretive Data: H igh Sensitive Troponin I Reference Ranges: Female: 0-51 ng/L Male: 0-76 ng/L Testing performed on Dimension EXL using a homogeneous sandwich chemiluminescent immunoassay based on [employer] technology. Urea nitrogen [Mass/Vol] 15 mg/dL Normal 7 - 18 mg/dL AO ADM SS Urea nitrogen/Creatinine [Mass ratio] 24 ratio Normal 7 - 27 ratio AO ADM SS WBC (Bld) [#/Vol] 7.8 103/mcL Normal 4.6 - 10.8 10^3/mcL AO Workflow SS [facility] 04-13-2024 High Sensitivity Troponin I <4 Normal [address] [place] [address] Comment on above: Result Comment: High Sensitive Troponin I Reference Ranges: Female: 0-51 ng/L Male: 0-76 ng/L Testing performed on Dimension EXL using a homogeneous sandwich chemiluminescent immunoassay based on [employer] technology. Performed By: #### T [facility] #### [address] [address] High Sensitivity Troponin I <4 Normal 0-51 [facility] Comment on above: Result Comment: High Sensitive Troponin I Reference Ranges: Female: 0-51 ng/L Male: 0-76 ng/L Testing performed on [employer] using a homogeneous sandwich chemiluminescent immunoassay based on [employer] technology. Performed By: #### C TROY, OLEG, JEN, MDW, GFR, ANEU, BMP #### [place] [id number] [place], [place] [address] XR CHEST 1 VIEWon 04-13-2024 XR CHEST 1 VIEW ORIGINAL EXAMINATION: ONE XRAY VIEW OF THE CHEST 04/13/2024 1:32 pm COMPARISON: None. HISTORY: ORDERING SYSTEM PROVIDED HISTORY: Reason for Exam: chest pain FINDINGS: The lungs are without acute focal process. There is no effusion or pneumothorax. The cardiomediastinal silhouette is without acute process. The osseous structures are without acute process. IMPRESSION: No acute process. Interpreted by: Dave Pizano DO Preliminary Report By: Dave Pizano DO Electronically signed By Dave Pizano DO Dictated Date: 04/13/2024 1:54:39 PM Prelim Date: 04/13/2024 1:54:55 PM Sign Date: 04/13/2024 1:54:55 PM Ordering Provider: JORGITO TUCKER Normal [facility] BY IFA SCREENOrdered By: Parul Crook on 11-15-2023 Interpretation and review of laboratory results Abnormal [facility] Nuclear Ab pattern (S) [Interp] Nuclear homogeneous [facility] Nuclear Ab Ql (S) Positive Abnormal Negative [facility] Comment on above: Anti-nuclear antibod y test is used as an aid in diagnosis of systemic autoimmune diseases. Where positive and clinically warranted, follow-up using disease-specific testing is recommended. Low positive titers are not uncommon with advanced age, certain chronic infections, and malignancies among others. Test methodology: Indirect fluorescence immunoassay (IFA) using HEp-2 cells. Nuclear Ab Ql (S) 1:80 [facility] 25-hydroxyvitamin D3 [Mass/V ol]on 11-12-2023 Interpretation and review of laboratory results Normal [facility] The reference range interval was based on an analysis of samples from healthy adults and may not pertain to children from 0-18 years old. [facility] C-REACTIVE PROTEIN (CRP)on 0 11-12-2023 CRP [Mass/Vol] 0.4 mg/dL NINF - 0.9 mg/dL [facility] CBC panel Auto (Bld)on 11-11 Erythrocyte distribution width (RBC) [Ratio] 12.2 % 11.5 - 15.0 % [facility] Hematocrit (Bld) [Volume fraction] 40.7 % 36.0 - 46.0 % [facility] Hemoglobin (Bld) [Mass/Vol] 13.3 g/dL 11.5 - 15.5 g/dL [facility] Interpretation and review of laboratory results Abnormal [facility] MCH (RBC) [Entitic mass] 28.7 pg 26.0 - 34.0 pg [facility] MCHC (RBC) [Mass/Vol] 32.7 g/dL 30.5 - 36.0 g/dL [facility] MCV (RBC) [Entitic vol] 87.7 fL 80.0 - 100.0 fL [facility] Nucleated RBC (Bld) [#/Vol] NINF [facility] Platelet mean volume (Bld) [Entitic vol] 9.7 fL 9.0 - 12.7 fL [facility] Platelets (Bld) [#/Vol] 408 10*3/uL High [facility] RBC (Bld) [#/Vol] 4.64 10*6/uL 3.90 - 5.2 0 m/uL [facility] WBC (Bld) [#/Vol] 8.16 10*3/uL [facility] Comprehensive metabolic 2000 panelon 11-12-2023 Albumin [Mass/Vol] 4.4 g/dL 3.9 - 4.9 g/dL [facility] ALP [Catalytic activity/Vol] 92 U/L 34 - 123 U/L [facility] ALT [Catalytic activity/Vol] 18 U/L 7 - 38 U/L [facility] Anion gap [Moles/Vol] 12 mmol/L 9 - 18 mmol/L [facility] AST [Catalytic activity/Vol] 17 U/L 13 - 35 U/L [facility] Bilirubin [Mass/Vol] 0.9 mg/dL 0.2 - 1 .3 mg/dL [facility] Calcium [Mass/Vol] 10.1 mg/dL 8.5 - 10. 2 mg/dL [facility] Chloride [Moles/Vol] 103 mmol/L 97 - 10 5 mmol/L [facility] CO2 [Moles/Vol] 26 mmol/L 22 - 30 mmol/L [facility] Creatinine [Mass/Vol] 0.67 mg/dL 0.58 - 0.96 mg/dL [facility] GFR/1.73 sq M.predicted among non-blacks MDRD (S/P/Bld) [Vol rate/Area] 105 mL/min/{1.73_m2} - PINF [facility] Comment on above: Estimated Glomerular Filtration Rate (eGFR) is calculated using the 2020 CKD-EPI creatinine equation. This equation utilizes serum creatinine, sex, and age as parameters. The creatinine assay has traceable calibration to isotope dilution-mass spectrometry. Refer to KDIGO guidelines for clinical interpretation. In patients with unstable renal function, e.g. those with acute kidney injury, the eGFR may not accurately reflect actual GFR. Glucose [Mass/Vol] 105 mg/dL High 74 - 99 mg/dL [facility] Comment on above: The [place] Di[employer] (ADA) provides guidance for cutoff values for fasting glucose and random glucose. The ADA defines fasting as no caloric intake for at least 8 hours. Fasting plasma glucose results between 100 to 125 mg/dL indicate increased risk for diabetes (prediabetes). Fasting plasma glucose results greater than or equal to 126 mg/dL meet the criteria for diagnosis of diabetes. In the absence of unequivocal hyperglycemia, results should be confirmed by repeat testing. In a patient with classic symptoms of hyperglycemia or hyperglycemic crisis, random plasma glucose results greater than or equal to 200 mg/dL meet the criteria for diagnosis of diabetes. Reference: Standards of Medical Care in Diabetes 2016, [place] [employer]. Diabetes Care. 2016.39(Suppl 1). Potassium [Moles/Vol] 4.2 mmol/L 3.7 - 5.1 mmol/L [facility] Protein [Mass/Vol] 7.4 g/dL 6.3 - 8.0 g/dL [facility] Center Sodium [Moles/Vol] 141 mmol/L 136 - 144 mmol/L [facility] Urea nitrogen [Mass/Vol] 15 mg/dL 7 - 21 mg/dL [facility] ESR Westergren method (Bld) [Velocity]on 11-12-2023 ESR (Bld) [Velocity] 8 mm/h [facility] Interpretation and review of laboratory results Normal [facility] Lipid 1996 panelon Cholesterol [Mass/Vol] 181 mg/dL NINF - 200 mg/dL [facility] Comment on above: <200 mg/dL, Desirabl e 200-239 mg/dL, Borderline high >239 mg/dL, High Cholesterol in HDL [Mass/Vol] 57 mg/dL 39 - PINF mg/dL [facility] Comment on above: 40-59 mg/dL, Accepta ble >59 mg/dL, High: Negative risk factor for coronary heart disease <40 mg/dL, Low: Positive risk factor for coronary heart disease Cholesterol in LDL [Mass/Vol] 102 mg/dL High NINF - 100 mg/dL [facility] Comment on above: <100 mg/dL, Optimal 100-129 mg/dL, Near optimal/above optimal 130-159 mg/dL, Borderline high 160-189 mg/dL, High >189 mg/dL, Very high Secondary prevention optimal LDL Cholesterol levels are recommended to be < 70 mg/dL Cholesterol in LDL/Cholesterol in HDL [Mass ratio] 1.79 {ratio} NINF - 2.54 [facility] Comment on above: Reference: 1. National Cholesterol Education Program ATP III Guideline At-A-Glance Quick Desk Reference: National Heart, Lung, and Blood [place]. National Institutes of Health. 2001: NIH Publication No. 01-3305. 2. An International Atherosclerosis Society position paper: global recommendations for the management of dyslipidemia: executive summary, Atherosclerosis. 2014: 232(2):410-413. Cholesterol in VLDL [Mass/Vol] 22 mg/dL NINF - 30 mg/dL [facility] Cholesterol non HDL [Mass/Vol] 124 mg/dL NINF - 130 mg/dL [facility] Comment on above: <130 mg/dL, Optimal 130-159 mg/dL, Near optimal/above optimal 160-189 mg/dL, Borderline high 190-219 mg/dL, High >219 mg/dL, Very high Secondary prevention optimal non HDL Cholesterol levels are recommended to be <100 mg/dL Cholesterol.total/Cho lesterol in HDL [Mass ratio] 3.18 {ratio} NINF - 5.10 [facility] Fasting Time 12 hrs [facility] Triglyceride [Mass/Vol] 112 mg/dL NINF - 150 mg/dL [facility] Comment on above: <150 mg/dL, Normal 150-199 mg/dL, Borderline high 200-499 mg/dL, High >499 mg/dL, Very high No Panel Informationon 04-13 -2024 Interpretation and review of laboratory results Normal [facility] Interpretation and review of laboratory results Abnormal [facility] Interpretation and review of laboratory results Normal [facility] RHEUMATOID FACTOR BLon 11-11 Rheumatoid factor Qn NINF [facility] T3 FREE BLDon 11-12-2023 Free T3 [Mass/Vol] 3.2 pg/mL 2.3 - 4.1 pg/mL [facility] T4 FREE/FREE THYROXon 2023 Free T4 [Mass/Vol] 1.2 ng/dL 0.9 - 1.7 ng/dL [facility] TSH BLDon 11-12-2023 TSH Qn 1.580 m[IU]/L [facility] TSH Qnon 11-12-2023 Interpretation and review of laboratory results Normal [facility] VITAMIN D 25 HYDROXYon 11-11 25-hydroxyvitamin D3 [Mass/Vol] 37.2 ng/mL 31.0 - 80.0 ng/mL [facility] Comment on above: Classification of 25 [place] Vitamin D status: Deficiency/Insufficiency: < or = 30 ng/ml. Sufficiency/Optimal Levels: 31-80 ng/mL Toxicity: > 100 ng/mL. Test performed by chemiluminescent immunoassay. TOÑA SCREENING W TOMOon 08-12 [facility] XR CHEST 2V FRONTAL/LATon [facility] XR Chest PA and Lateralon IMPRESSION: No acute radiographic abnormality. Digital Imager: HAN Transcribe Date/Time: Nov 24 2021 11:52A Dictated by : JESUSITA GARZON MD This examination was interpreted and the report reviewed and electronically signed by: JESUSITA GARZON MD on Nov 24 2021 11:52AM EST [email or web address]_US E_DIVISION OF RADIOLOGY * * *Final Report* * * DATE OF EXAM: Nov 24 2021 11:50AM WOX [id number] - XR CHEST 2V FRONTAL/LAT / PROCEDURE REASON: Cough * * * * Physician Interpretation * * * * EXAMINATION: CHEST RADIOGRAPH (2 VIEW FRONTAL & LATERAL) CLINICAL HISTORY: Cough MQ: XC2_6 EXAM DATE/TIME: 11/24/2021 11:50 AM COMPARISON: No relevant prior studies available. RESULT: Lines, tubes, and devices: None. Lungs and pleura: No consolidation. No lung mass. No pleural effusion. No pneumothorax. Cardiomediastinal silhouette: Normal cardiomediastinal silhouette. Bones and soft tissues: Unremarkable. [email or web address]_US E_DIVISION OF RADIOLOGY Provider, Pratibha bailey [place] - 11/24/2021 * * *Final Report* * * DATE OF EXAM: Nov 24 2021 11:50AM WOX [id number] - XR CHEST 2V FRONTAL/LAT / PROCEDURE REASON: Cough * * * * Physician Interpretation * * * * EXAMINATION: CHEST RADIOGRAPH (2 VIEW FRONTAL & LATERAL) CLINICAL HISTORY: Cough MQ: XC2_6 EXAM DATE/TIME: 11/24/2021 11:50 AM COMPARISON: No relevant prior studies available. RESULT: Lines, tubes, and devices: None. Lungs and pleura: No consolidation. No lung mass. No pleural effusion. No pneumothorax. Cardiomediastinal silhouette: Normal cardiomediastinal silhouette. Bones and soft tissues: Unremarkable. IMPRESSION IMPRESSION: No acute radiographic abnormality. Digital Imager: PSCB Transcribe Date/Time: Nov 24 2021 11:52A Dictated by : JESUSITA GARZON MD This examination was interpreted and the report reviewed and electronically signed by: JESUSITA GARZON MD on Nov 24 2021 11:52AM EST [facility] Radiology Study observation (narrative) [facility] XR Chest PA and LateralOrder ed By: [facility] Provider on 11-24-2021 [facility] Office Visit: UC: ear painon 01-03-2017 Documentation of current medications (procedure) Done Invalid Interpretation Code [facility] Work Phone: Documentation of current medications (procedure) T Invalid Interpretation Code [facility] Work Phone: Fall risk assessment No Invalid Interpretation Code [facility] Work Phone: Tobacco use [facility] Never smoker Invalid Interpretation Code [facility] Work Phone: Vital Signs Date Time Vital Sign Value Performing Clinician Facility 12-21-2024 09:41-0400 Body temperature 98.5 [degF] Dr. Perla Stanley DO Work Phone: [facility] 12-21-2024 09:41-0400 Diastolic blood pressure 77 mm[Hg] Dr. Perla Stanley DO Work Phone: [facility] 12-21-2024 09:41-0400 Heart rate 78 /min Dr. Perla Stanley DO Work Phone: [facility] 12-21-2024 09:41-0400 Respiratory rate 16 /min Dr. Perla Stanley DO Work Phone: [facility] 12-21-2024 09:41-0400 SaO2% (BldA) [Mass fraction] 100 % Dr. Perla Stanley DO Work Phone: [facility] 12-21-2024 09:41-0400 Systolic blood pressure 134 mm[Hg] Dr. Perla Stanley DO Work Phone: [facility] 04-13-2024 17:05-0400 Diastolic Blood Pressure Non-Invasive 86 mm[Hg] CAROLANN MCNAIR MD [facility] 04-13-2024 17:05-0400 Heart rate 78 /min CAROLANN MCNAIR MD [facility] 04-13-2024 17:05-0400 Respiratory rate 16 /min CAROLANN MCNAIR MD [facility] 04-13-2024 17:05-0400 Systolic Blood Pressure Non-Invasive 130 mm[Hg] CAROLANN MCNAIR MD [facility] 04-13-2024 15:22-0400 Diastolic Blood Pressure Non-Invasive 85 mm[Hg] CAROLANN MCNAIR MD [facility] 04-13-2024 15:22-0400 Heart rate 72 /min CAROLANN MCNAIR MD [facility] 04-13-2024 15:22-0400 Respiratory rate 16 /min CAROLANN MCNAIR MD [facility] 04-13-2024 15:22-0400 Systolic Blood Pressure Non-Invasive 125 mm[Hg] CAROLANN MCNAIR MD [facility] 04-13-2024 14:16-0400 Diastolic Blood Pressure Non-Invasive 68 mm[Hg] CAROLANN MCNAIR MD [facility] 04-13-2024 14:16-0400 Heart rate 85 /min CAROLANN MCNAIR MD [facility] 04-13-2024 14:16-0400 Respiratory rate 16 /min CAROLANN MCNAIR MD [facility] 04-13-2024 14:16-0400 Systolic Blood Pressure Non-Invasive 137 mm[Hg] CAROLANN MCNAIR MD [facility] 04-13-2024 12:48-0400 Body temperature 98.06 [degF] CAROLANN MCNAIR MD [facility] 04-13-2024 12:48-0400 Body weight 63.6 kg CAROLANN MCNAIR MD [facility] 04-13-2024 12:48-0400 Heart rate 84 /min CAROLANN MCNAIR MD [facility] 11-08-2023 18:58-0400 Diastolic blood pressure 72 mm[Hg] Gisela Coffey MD Work Phone: [facility] 11-08-2023 18:58-0400 Systolic blood pressure 140 mm[Hg] Gisela Coffey MD Work Phone: [facility] 11-08-2023 18:12-0400 Heart rate 91 /min Gisela Coffey MD Work Phone: [facility] 11-08-2023 18:00-0400 Body height 159 cm Gisela Coffey MD Work Phone: [facility] 11-08-2023 18:00-0400 Body mass index (BMI) [Ratio] 28.71 kg/m2 Gisela Coffey MD Work Phone: [facility] 11-08-2023 18:00-0400 Body weight 72.58 kg Gisela Coffey MD Work Phone: [facility] 11-08-2023 18:00-0400 Respiratory rate 16 /min Gisela Coffey MD Work Phone: [facility] 11-08-2023 18:00-0400 SaO2% (BldA) [Mass fraction] 97 % Gisela Coffey MD Work Phone: [facility] 09-06-2023 15:28-0500 Body height 157.5 cm Rossy Flanagan MD Work Phone: [facility] 09-06-2023 15:28-0500 Body weight 70.31 kg Rossy Flanagan MD Work Phone: [facility] 09-06-2023 15:28-0500 Diastolic blood pressure 80 mm[Hg] Rossy Flanagan MD Work Phone: [facility] 09-06-2023 15:28-0500 Systolic blood pressure 130 mm[Hg] Rossy Flanagan MD Work Phone: [facility] 08-12-2022 13:34-0500 Body height 158.8 cm Edith Mathis MD Work Phone: [facility] 08-12-2022 13:34-0500 Body weight 71.22 kg Edith Mathis MD Work Phone: [facility] 08-12-2022 13:34-0500 Diastolic blood pressure 76 mm[Hg] Edith Mathis MD Work Phone: [facility] 08-12-2022 13:34-0500 Systolic blood pressure 114 mm[Hg] Edith Mathis MD Work Phone: [facility] 11-24-2021 11:16-0400 Body temperature 97.5 [degF] Burak Meccalemina FLAME CUTTING MACHINE OPERATOR.HOUSE RN Work Phone: [facility] 11-24-2021 11:16-0400 Body weight 71.03 kg Burakgael Shaffer FLAME CUTTING MACHINE OPERATOR.HOUSE RN Work Phone: [facility] 11-24-2021 11:16-0400 Diastolic blood pressure 70 mm[Hg] Burak Pendlebury FLAME CUTTING MACHINE OPERATOR.HOUSE RN Work Phone: [facility] 11-24-2021 11:16-0400 Heart rate 86 /min Burakgael Shaffer FLAME CUTTING MACHINE OPERATOR.HOUSE RN Work Phone: [facility] 11-24-2021 11:16-0400 Respiratory rate 16 /min Burak Shaffer FLAME CUTTING MACHINE OPERATOR.HOUSE RN Work Phone: [facility] 11-24-2021 11:16-0400 SaO2% (BldA) [Mass fraction] 98 % Burak Shaffer FLAME CUTTING MACHINE OPERATOR.HOUSE RN Work Phone: [facility] 11-24-2021 11:16-0400 Systolic blood pressure 120 mm[Hg] Burak Shaffer FLAME CUTTING MACHINE OPERATOR.HOUSE RN Work Phone: [facility] 01-03-2017 12:17-0400 BMI (Body Mass Index) 25.86 kg/m2 Kamila Ambrosio LPN [facility] Work Phone: 01-03-2017 12:17-0400 Body Temperature 98.8 [degF] Kamila Ambrosio LPN [facility] maria teresa Work Phone: 01-03-2017 12:17-0400 BP Diastolic 68 mm[Hg] Kamila Ambrosio LPN [facility] Work Phone: 01-03-2017 12:17-0400 BP Systolic 108 mm[Hg] Kamila Ambrosio LPN [facility] Work Phone: 01-03-2017 12:17-0400 Height 160.02 cm Kamila Ambrosio LPN [facility] Work Phone: 01-03-2017 12:17-0400 Pulse (Heart Rate) 71 /min Kamila Ambrosio LPN [facility] Work Phone: 01-03-2017 12:17-0400 Pulse Oximetry 99 % Kamila Ambrosio LPN [facility] Work Phone: 01-03-2017 12:17-0400 Respiratory Rate 14 /min Kamila Ambrosio LPN [facility]ia teresa Work Phone: 01-03-2017 12:170400 Weight 66.23 kg Kamila Ambrosio LPN [facility] Work Phone: Encounters Encounter Date Encounter Type Care Provider Facility Start: 04-02-2025 ambulatory Perla Stanley Facilit y:[facility] Start: 01-03-2025 End: 01-03-2025 [facility] Work Phone: Start: 01-03-2025 End: 01-03-[address] Perla Stanley DO Work Phone: [facility] Work Phone: Start: 12-26-2024 End: 01-28-2025 Admission to same day surgery center Gisela Coffey MD Work Phone: Ambulatory Surgery Comment on above: Outpatient [place] py (Patient is overdue for colorectal cancer screening since 06-22-2024. (screening was last done Please schedule open access colonoscopy. ) Start: 12-26-2024 End: 01-28-2025 ambulatory Gisela Coffey MD Work Phone: Ambulatory Surgery Start: 12-21-2024 End: 12-21-2024 Admission to same day surgery center [facility] Work Phone: Start: 12-21-2024 End: 12-21-2024 ambulatory Perla Stanley Facility:[facility] Start: 11-30-2024 End: 11-30-2024 Patient encounter procedure Alexx Garcia DO -[facility] Work Phone: Start: 11-30-2024 End: 11-30-2024 ambulatory Perla Lizeth Facility:[facility] Start: 09-27-2024 End: 12-29-2024 Telephone encounter Rossy Flanagan MD Work Phone: OB/Gynecology Start: 09-18-2024 End: 10-19-2024 ambulatory Gisela Coffey MD Work Phone: [facility] [place] Start: 07-16-2024 End: 10-18-2024 Telephone encounter Gisela Coffey MD Work Phone: [facility] [place] Start: 06-20-2024 ambulatory Perlaruddy Stanley Facilit y:[facility] Start: 05-22-2024 End: 05-22-2024 Subsequent hospital visit by physician [address] Comment on above: Type 2 diabetes parker itus without complications (Multi) Start: 05-22-2024 End: 05-22-2024 ambulatory PERLA Aurelia LIZETH [facility] Start: 04-20-2024 ambulatory Baldo Aubrey Facility:[facility] Start: 04-20-2024 End: 04-20-2024 ambulatory Perla Stanley Facility:[facility] Start: 04-13-2024 End: 04-13-2024 Emergency department patient visit DR PERLA STANLEY DO Facility:[facility] Start: 11-08-2023 End: 11-08-2023 Patient encounter status Gisela Coffey MD Work Phone: [facility] Work Phone: Start: 11-08-2023 End: 11-08-2023 Periodic preventive med est patient 40-64yrs Gisela Coffey MD Work Phone: [facility] [place] Comment on above: Routine medical exam (Primary Dx); Perimenopause; Osteopenia, unspecified location; Elevated blood pressure reading in office without diagnosis of hypertension; Polyarthralgia Start: 09-06-2023 End: 09-06-2023 Patient encounter procedure Rossy Flanagan MD Work Phone: OB/Gynecology Comment on above: Encounter for gyneco logical examination (general) (routine) without abnormal findings (Primary Dx); Encounter for screening mammogram for breast cancer; Encounter for screening for malignant neoplasm of cervix; Special screening examination for human papillomavirus (HPV) Start: 09-06-2023 End: 09-06-2023 Patient encounter status Rossy Flanagan MD Work Phone: [facility] Start: 05-04-2023 Refill Marycarmen Cardenas MD Work Phone: OB/Gynecology Comment on above: Refill Request Start: 08-12-2022 Documentation procedure Mammog ted Coordinator [facility] Start: 08-12-2022 Letter encounter Mammography Coordinator [facility] Department Start: 08-12-2022 End: 08-12-2022 Patient encounter procedure Edith Mathis MD Work Phone: OB/Gynecology Comment on above: Encounter for gyneco logical examination (general) (routine) without abnormal findings (Primary Dx); Encounter for screening mammogram for breast cancer Start: 08-12-2022 End: 08-12-2022 Patient encounter status Edith Mathis MD Work Phone: OB/Gynecology Start: 08-12-2022 End: 08-12-2022 Patient encounter status Screen Wstr [facility] Start: 08-12-2022 End: 08-12-2022 Subsequent hospital visit by physician Screen Mammo [facility] Mammogram Comment on above: Encounter for gyneco logical examination (general) (routine) without abnormal findings [Z01.419] Start: 11-24-2021 End: 11-24-2021 Subsequent hospital visit by physician Xr [facility] [place] Work Phone: Radiology Comment on above: Cough [R05.9] Start: 11-24-2021 End: 11-24-2021 Patient encounter procedure Burak Shaffer APRN.HOUSE RN Work Phone: [facility] Comment on above: Cough (Primary Dx); Bronchitis Procedures Date Procedure Procedure Detail Performing Clinician Start: 11-12-2023 Lipid 1996 panel - S ashley or Plasma Giesla Coffey MD Work Phone: Start: 09-06-2023 Microscopic observat ion [Identifier] in Cervix by Cyto stain Tushar 2 Start: 08-11-2023 Mammography [facility] 2 Start: 08-12-2022 TOÑA SCREENING W ADRIEL Re mariana Mathis MD Work Phone: Start: 08-12-2022 Mammography Edith lopez MD Work Phone: Start: 11-24-2021 Radiologic exam ches t 2 views Burak Shaffer FLAME CUTTING MACHINE OPERATOR.HOUSE RN Work Phone: Start: 06-11-2021 Mammography Burak hamlin FLAME CUTTING MACHINE OPERATOR.HOUSE RN Work Phone: Start: 06-03-2021 Adult depression scr eening assessment Burak Shaffer FLAME CUTTING MACHINE OPERATOR.HOUSE RN Work Phone: Start: 05-16-2018 Lipid 1996 panel - S ashley or Plasma Marycarmen Cardenas MD Work Phone: Plan of Treatment Date Care Activity Detail Author Start: 06-03-2031 DTaP/Tdap/Td Vaccine s (3 - Td or Tdap) DTaP/Tdap/Td Vaccines (3 - Td or Tdap) [facility] Start: 06-03-2031 Urine microalbumin profile [facility] Start: 11-11-2028 Lipid panel Lipid Screening [facility] Start: 09-06-2028 Screening for malign ant neoplasm of cervix [facility] Start: 11-11-2026 Diabetes Screening Diabetes Screenin [facility] Start: 09-06-2026 Screening for malign ant neoplasm of cervix [facility] Start: 12-24-2025 Diabetes Screening Diabetes Screenin g [facility] Start: 04-01-2025 Influenza vaccination Influenz a Vaccine (Season Ended) [facility] Start: 12-21-2024 Esophageal motility study w/interp&rpt ESOPHAGUS MOTILITY STUDY [facility] Start: 12-21-2024 Patient discharge [facility] [place] [place] Start: 11-13-2024 End: 11-13-2024 Patient encounter procedure Mammogram Comment on above: TOÑA SCREENING W ADRIEL Annual Start: 11-13-2024 End: 11-13-2024 Patient encounter procedure 11/13/2024 1:20 PM EDT Office Visit [facility] [place] [address] [place], [place] [phone] Gisela Coffey MD [address] [place], [place] [phone] physical [facility] Comment on above: physical Start: 08-11-2024 Screening for malign ant neoplasm of breast [facility] Start: 07-05-2024 HPV TESTING HPV TESTING [facility] Start: 07-05-2024 PAP TESTING PAP TESTING [facility] Start: 07-05-2024 Screening for malign ant neoplasm of cervix [facility] Start: 06-22-2024 Cologuard (FIT-DNA) Cologuard (FIT-D NA) [facility] Start: 06-22-2024 Colorectal Cancer Screening Colorectal Cancer Screening [facility] Start: 06-22-2024 Screening for malign ant neoplasm of colon [facility] Start: 04-01-2024 Covid-19 Vaccine ( season) Covid-19 Vaccine () [facility] Start: 04-01-2024 Influenza vaccination [facility] Start: 01-10-2024 End: 01-10-2024 Patient encounter procedure 01/10/2024 11:00 AM EDT Office Visit [facility] [address] [place], [place] [phone] Layla German APRN.HOUSE RN [address] [place], [place] [phone] bp check [facility] Comment on above: bp check Start: 11-17-2023 Covid-19 Vaccine (#1) Covid-19 Vacci ne (#1) [facility] Comment on above: Postponed from 12/17 (Declined at this time) Start: 11-17-2023 Hepatitis B Vaccine (1 of 3 - 3-dose series) Hepatitis B Vaccine (1 of 3 - 3-dose series) [facility] Comment on above: Postponed from 06/19 (Declined at this time) Start: 11-17-2023 Shingrix Vaccine (1 of 2) Shingrix Vaccine (1 of 2) [facility] Comment on above: Postponed from 06/19 (Declined at this time) Start: 08-12-2023 Mammography [facility] Start: 08-01-2023 Behavioral Health Screening Behavioral Health Screening [facility] Start: 08-01-2023 Depression Assessment Depression Ass essment [facility] Start: 05-16-2023 Lipid 1996 panel - S ashley or Plasma Lipid Screening [facility] Start: 05-16-2023 Lipid panel Lipid Screening [facility] Start: 05-16-2023 LIPID SCREEN LIPID SCREEN [facility] Start: 04-01-2023 Covid-19 Vaccine ( season) Covid-19 Vaccine () [facility] Start: 04-01-2023 Influenza vaccination Influenza Vacc ine (#1) [facility] Start: 08-01-2022 DEPRESSION ASSESSMENT DEPRESSION ASS ESSMENT [facility] Start: 06-11-2022 Mammography MAMMOGRAM [facility] Start: 06-03-2022 Adult depression screening assessment DEPRESSION SCREENING [facility] Start: 06-03-2022 COVID-19 VACCINE (1) COVID-19 VACCIN E (1) [facility] Comment on above: Postponed from 06/19 (Declined at this time) Start: 06-03-2022 SHINGRIX VACCINE (1 of 2) SHINGRIX VACCINE (1 of 2) [facility] Comment on above: Postponed from 06/19 (Declined at this time) Start: 04-24-2022 DIABETES SCREEN DIABETES SCREEN [facility] Start: 04-01-2022 Influenza vaccination C [facility] Start: 2020 Pneumococcal Vaccine : 50+ (1 of 1 - PCV) Pneumococcal Vaccine: 50+ (1 of 1 - PCV) [facility] Start: 2020 SHINGRIX VACCINE (1 of 2) SHINGRIX VACCINE (1 of 2) [facility] Start: 2020 Zoster Vaccines (1 of 2) Zoster Vacc anand (1 of 2) [facility] Start: 01-03-2017 End: 01-03-2017 Appointment Appointment [facility] Work Phone: Start: 2015 COLOGUARD (FIT-DNA) COLOGUARD (FIT-D NA) [facility] Start: 2015 Colonoscopy COLONOSCOPY [facility] Start: 2015 COLORECTAL CANCER SCREENING COLORECTAL CANCER SCREENING [facility] Start: [address] COLONOGRAPHY [facility] Start: 2015 FECAL OCCULT BLOOD FECAL OCCULT BLOO D [facility] Start: 2015 Screening for malign ant neoplasm of colon [facility] Start: 2015 SIGMOIDOSCOPY SIGMOIDOSCOPY [facility] Start: 1991 Screening for malign ant neoplasm of cervix HPV/Cotest [facility] Start: 1989 Hepatitis B Vaccine (1 of 3 - 19+ 3-dose series) Hepatitis B Vaccine (1 of 3 - + 3-dose series) [facility] Start: 1989 Hepatitis B Vaccines (1 of 3 - 19+ 3-dose series) Hepatitis B Vaccines (1 of 3 - 19+ 3-dose series) [facility] Start: 1989 Urine screening for protein Diabetes: Urine Protein Screening [facility] Start: 1988 Anxiety Screening Anxiety Screening [facility] Start: 1988 Depression Screening Depression Scre ening [facility] [facility] Start: [facility] Hepatitis C screening Hepatitis C Sc reening [facility] Start: 1980 Glaucoma screening Diabetes: R etinopathy Screening [facility] Start: 1976 Pneumococcal Vaccine : Pediatrics (0 to 5 Years) and At-Risk Patients (6 to 64 Years) (1 of 2 - PCV) Pneumococcal Vaccine: Pediatrics (0 to 5 Years) and At-Risk Patients (6 to 64 Years) (1 of 2 - PCV) [facility] Start: 1971 MMR Vaccines (1 of 1 - Standard series) MMR Vaccines (1 of 1 - Standard series) [facility] Start: 1970 COVID-19 VACCINE (#1) COVID-19 VACCI NE (#1) [facility] Start: 1970 Hemoglobin A1c measurement Diabetes: Hemoglobin A1C [facility] Start: 1970 HEPATITIS B (1 of 3 - 3-dose series) HEPATITIS B (1 of 3 - 3-dose series) [facility] Start: 1970 HIV screening HIV Screening [facility] Start: 1970 Lipid panel Lipid Panel [facility] Start: 1970 Screening for malign ant neoplasm of colon [facility] Start: 1970 Yearly Adult Physical Yearly Adult P hysical [facility] C reactive protein [Mass/volume] in Serum or Plasma [facility] CBC W Auto Different ial panel - Blood [facility] Cobalamin (Vitamin B 12) [Mass/volume] in Serum or Plasma [facility] Comprehensive metabo lic 2000 panel - Serum or Plasma [facility] End: 05-22-2024 CT for calcium scoring WO contrast and CTA W contrast IV Heart and coronary arteries [facility] Service Area Work Phone: Comment on above: Once for 1 Occurrenc es starting 05/22/2024 until 05/22/2024 End: 10-18-2025 DBT Breast - bilateral screening TOÑA SCREENING [facility] Radiology Routine Encounter for screening mammogram for breast cancer 1 Occurrences starting 09/18/2024 until 10/18/2025 [facility] Work Phone: Comment on above: 1 Occurrences starti ng 09/18/2024 until 10/18/2025 End: 10-27-2025 DBT Breast - bilateral screening TOÑA SCREENING [facility] Radiology Routine Breast screening 1 Occurrences starting 09/27/2024 until 10/27/2025 [facility] Work Phone: Comment on above: 1 Occurrences starti ng 09/27/2024 until 10/27/2025 Erythrocyte sedimentation rate [facility] Folate [Moles/volume ] in Serum or Plasma [facility] Gastrin [Mass/volume ] in Serum or Plasma [facility] Laboratory test [facility] Lactate dehydrogenas e measurement [facility] End: 09-11-2023 TOÑA SCREENING W [facility] TOÑA SCREENING [facility] Radiology Routine Encounter for gynecological examination (general) (routine) without abnormal findings Encounter for screening mammogram for breast cancer 1 Occurrences starting 08/12/2022 until 09/11/2023 [facility] Work Phone: Comment on above: 1 Occurrences starti ng 08/12/2022 until 09/11/2023 End: 10-05-2024 TOÑA SCREENING W [facility] TOÑA SCREENING [facility] Radiology Routine Encounter for screening mammogram for breast cancer 1 Occurrences starting 09/06/2023 until 10/05/2024 [facility] Work Phone: Comment on above: 1 Occurrences starti ng 09/06/2023 until 10/05/2024 PAP TEST PAP TEST Lab [facility] alana Encounter for gynecological examination (general) (routine) without abnormal findings Encounter for screening for malignant neoplasm of cervix Special screening examination for human papillomavirus (HPV) Ordered: 09/06/2023 [facility] Work Phone: Comment on above: Ordered: 09/06/2023 Patient Education [facility] Work Phone: Patient referral [facility] Work Phone: Procedure [facility] Serum immunofixation [facility] Immunizations Immunization Date Immunization Notes Care Provider Evelyne arndt 06-03-2021 tetanus and diphther ia toxoids, adsorbed, preservative free, for adult use (5 Lf of tetanus toxoid and 2 Lf of diphtheria toxoid) Burak Shaffer APRN.HOUSE RN Work Phone: [facility] 05-17-2017 influenza virus vaccine, unspecified formulation Marycarmen Cardenas MD Work Phone: [facility] 11-27-2009 tetanus toxoid, redu howard diphtheria toxoid, and acellular pertussis vaccine, adsorbed Burak Shaffer APRN.HOUSE RN Work Phone: [facility] Payers Date Payer Category Payer Self-pay 2024 Unknown [id number] 2024 Unknown [id number] 2023 Private Health Insurance [facility] SELF PAY [id number] 2020 Unknown [facility] [id number] 2020-Present [phone] [address] [place] [address] Other [id number] 2020 Unknown [id number] 1970 Unknown [id number] Unknown [id number] Unknown [id number] Unknown [id number] Unknown [id number] Unknown [id number] Unknown [id number] Unknown [id number] Unknown [id number] Social History Date Type Detail Facility Start: 11-30-2024 Tobacco smoking status NHIS Never smoked tobacco [facility] Work Phone: Start: 11-24-2021 End: 11-08-2023 Alcohol intake Current non-drinker of alcohol (finding) [facility] Start: 06-02-2020 History SDOH Alcohol Frequency 2 [facility] Start: 06-02-2020 History SDOH Alcohol Std Drinks 1 [facility] Start: 06-02-2020 History SDOH Social Connections Phone 5 [facility] Start: 06-02-2020 History SDOH Social Connections Get Together 4 [facility] Start: 06-02-2020 History SDOH Social Connections Yarsanism 3 [facility] Start: 06-02-2020 History SDOH Physical Activity MPS 6 [facility] Start: 06-02-2020 Education 12 [facility] Start: 1970 Sex Assigned At Not on file [facility] Start: 11-14-2021 End: 05-22-2024 Exposure to SARS-CoV-2 (event) Not sure [facility] Work Phone: Start: 06-02-2020 End: 07-28-2023 History of Social function [facility] Start: 06-02-2020 End: 07-28-2023 Social connection and isolation panel [facility] Do you belong to any clubs or organizations such as scientology groups, unions, fraternal or athletic groups, or school groups? Yes [facility] Are you now , , , , never or living with a partner? [facility] How often to you hav e a drink containing alcohol? Monthly or less [facility] How many standard dr inks containing alcohol do you have on a typical day? 1 or 2 [facility] How often do you hav e 6 or more drinks on 1 occasion? Never [facility] How hard is it for y ou to pay for the very basics like food, housing, medical care, and heating Not hard at all [facility] Do you feel stress - tense, restless, nervous, or anxious, or unable to sleep at night because your mind is troubled all the time - these days [OSQ] Not at all [facility] (I/We) worried wheth er (my/our) food would run out before (I/we) got money to buy more. Never true [facility] In the past 12 month s, was there a time when you were not able to pay the mortgage or rent on time? No [facility] Tobacco smoking stat [facility] Tobacco smoking consumption unknown [facility] Work Phone: Start: 1970 Sex Assigned At Female [facility] Functional Status Date Assessment Result Facility 04-13-2024 Functional Status Standard Safet y ID band on, Call device within reach, Bed in low position, Wheels locked, Upper/Half-Length side-rails up, Phone within reach, Bedside Cart Locked, Safety level maintained [facility] 01-28-2015 Are you deaf, or do you have serious difficulty hearing No 01/28/2015 12:59 PM EDT Rosemarie Meléndez Cma [facility] 01-28-2015 Are you blind, or do you have serious difficulty seeing, even when wearing glasses No 01/28/2015 12:59 PM EDT Rosemarie Meléndez Cma [facility] 01-28-2015 Do you have serious difficulty walking or climbing stairs No 01/28/2015 12:59 PM EDT Rosemarie Meléndez Cma [facility] 01-28-2015 Do you have difficul ty dressing or bathing No 01/28/2015 12:59 PM EDT Rosemarie Meléndez Cma [facility] 01-28-2015 Because of a physica l, mental, or emotional condition, do you have difficulty doing errands alone such as visiting a physician's office or shopping No 01/28/2015 12:59 PM EDT Rosemarie Meléndez Cma [facility] Mental Status Date Assessment Result Facility 12-21-2024 Cognitive function Level Of Cons ciousness Awake;Alert;Appropriate;Fo llows Commands [facility] Work Phone: 04-13-2024 Mental Status Orientation Oriented x 4 [facility] 01-28-2015 Because of a physica l, mental, or emotional condition, do you have serious difficulty concentrating, remembering, or making decisions No 01/28/2015 12:59 PM EDT Rosemarie Meléndez Cma [facility] Clinical Notes 11-24-2021 to 01-25-2025 Denia Huffman - 01/25/2025 2:18 PM Tory Elliott - 01/17/2025 8:53 AM EDTory Arita - 12/31/2024 9:22 AM EDTPatient Instructions Note Date & Type Note Facility 01-25-2025 Note HNO ID: [id number] Author: ?, ?, ? Service: ? Author Type: ? Type: Progress Notes Filed: 01/28/2025 03:03 Note Text: Lvm for patient to schedule mammogram, open access colonoscopy and est wellness with her pcp [facility] 01-25-2025 History of Presen t illness Narrative Lvm for patient to schedule mammogram, open access colonoscopy and est wellness with her pcp 2nd attempt LVM to schedule colonoscopy 1st attempt LVM to schedule colonoscopy documented in this encounter [facility] 01-17-2025 Note HNO ID: [id number] Author: ?, ?, ? Service: ? Author Type: ? Type: Progress Notes Filed: 01/28/2025 03:03 Note Text: 2nd attempt LVM to schedule colonoscopy [facility] 12-31-2024 Note HNO ID: [id number] Author: ?, ?, ? Service: ? Author Type: ? Type: Progress Notes Filed: 01/28/2025 03:03 Note Text: 1st attempt LVM to schedule colonoscopy [facility] 12-26-2024 Instructions Silvia Esquivel RN - 12/26/2024 1:06 PM EDT COLONOSCOPY BOWEL PREPARATION INSTRUCTIONS MiraLAX Your doctor has scheduled you for a colonoscopy. To have a successful colonoscopy, you must have a clean colon, that is empty. A clean colon allows your doctor to see the entire colon & diagnose issues like polyps or cancer. For doctors, a clean colon is like driving on a mia day; a dirty colon like driving in a storm. It is very important that you follow these instructions exactly, or your colonoscopy may not be as effective, could be canceled, and you may need to do the bowel prep and colonoscopy again. TRANSPORTATION REQUIREMENTS You are receiving IV sedation. For your safety, a responsible adult escort must accompany you to and from your procedure: Your adult escort MUST be present with you at check-in for your colonoscopy. Your adult escort MUST remain in the endoscopy area until you are discharged. Your adult escort MUST transport you home once you are discharged. You are NOT allowed to operate any form of transportation (i.e. drive a car, bicycle, etc) or leave the Endoscopy Center ALONE. It is not safe to do so. If you cannot meet these requirements, your procedure will be canceled. MEDICATION REQUIREMENTS For your safety, certain medications will need to be stopped or adjusted before you can have your procedure: BLOOD THINNERS: If you take blood thinners, such as Coumadin (warfarin), Plavix (clopidogrel), Ticlid (ticlopidine hydrochloride), Agrylin (anagrelide), Xarelto (Rivaroxaban), Pradaxa (Dabigatran), Eliquis (Apixaban), or Effient (Prasugrel), contact the physician who is prescribing these medications at least 2 weeks prior to your procedure to discuss any necessary adjustments. DIABETES: If you take medications for diabetes, your dosage may need to be adjusted. If you are being treated for diabetes with insulin, diabetic pills, or other injectable medications do not take your REGULAR dose after midnight on the day of your procedure. If you are taking any other types of insulin such as Lantus, Humalog, NPH (long-acting insulin), or 70/30 insulin, take half your normal dose the day before your procedure. DIABETES/WEIGHT MANAGEMENT: If you take medications for weight-loss, your dosage may need to be adjusted Contact the doctor who prescribes this medication for further instructions. If you take medications for weight-loss like semaglutide (Ozempic, Wegovy, Rybelsus), dulaglutide (Trulicity), liraglutide (Victoza, Saxenda), exenatide (Byetta, Bydureon), or lixisenatide (Adylyxin), stop your medication 1 week prior to your procedure. If you take medications like canagliflozin (Invokana), dapagliflozin (Farxiga, Forxiga), empagliflozin (Jardiance), stop your medication 3 days prior to your procedure. If you take ertugliflozin (Steglatro) stop your medication 4 days prior to your procedure. IRON: If you take iron pills, STOP them 1 week BEFORE your procedure, may resume after. OTHER MEDS: May take all other medications (including aspirin, antibiotics, water pills / diuretics like Lasix or Metolozone, blood pressure meds, etc.) at their usual scheduled time with water. DIET REQUIREMENTS The day before your colonoscopy, you may have a clear liquid diet (see below). The day of your colonoscopy, you may continue a clear liquid diet until 3 hours before your colonoscopy. Within 3 hours of your colonoscopy, take only any medications (as above) with a sip of water. Clear Liquid Diet Broth (chicken, beef or vegetable broth or bullion. Just the broth, no solids). Water Coffee or Tea (NO milk or creamer), but sugar and sugar substitutes are allowed. Clear liquids including clear, yellow, green, blue (NO red, NO orange, NO purple) Sodas / soft drinks; Gatorade or other sports drinks Fruit juice (strained; no-pulp); Freddy-Aid or flavored drinks Plain Jell-O or other gelatins Popsicles or hard candy Bowel prep can work differently from person to person. Some people's bowels move slowly and they may need different instructions. Please see your doctor in office or virtually for personalized bowel prep instructions if you have: BOWEL PREPARATION (MIRALAX/GATORADE) Split Dosing Bowel Prep: This means drinking your bowel prep in two doses. Split dosing helps clean your colon better and makes it less likely that your procedure will be canceled. You will need to purchase the following (no prescriptions are needed): 64 ounces Gatorade, Propel, Crystal Lite or other noncarbonated clear liquid sports drink (NOT red, orange, or purple). Diabetic patients buy sugar-free, e.g. Gatorade G2 4 Dulcolax laxative tablets containing 5mg bisacodyl each (do not buy the stool softener) 8.3 oz MiraLAX (238g) powder or generic polyethylene glycol 3350 (find in laxative aisle) The day before your colonoscopy mix 64 oz of the sports drink with 8.3 oz MiraLAX (238 g) in a pitcher. Stir or shake until MiraLAX completely dissolved. Chill if desired. On the evening before your colonoscopy: 5 PM take 4 Dulcolax laxative tablets with water by mouth. 6 PM drink the first half of the Gatorade/MiraLAX solution Drink one 8-ounce glass every 15 minutes. Six hours before your colonoscopy, drink the second half of the solution. Drink one 8-ounce glass every 15 minutes. You may continue a clear liquid diet until 3 hours before your colonoscopy. Bowel prep can work differently from person to person. Some people's bowels move slowly and they may need different instructions. Please see your doctor in office or virtually for personalized bowel prep instructions if you have: Medical condition that needs special accommodations Had a poor bowel prep results or failed bowel prep attempts in the past. Had difficulty with anesthesia during the procedure. FREQUENTLY ASKED QUESTIONS Q: What if I suffer from constipation? A: Recommend taking extra laxatives to resolve your constipation days prior to entering the bowel prep day. Q: What if have had prior poor preps results in past? A: Contact your physician as you will likely need additional bowel prep instructions. Q: What if I have motility issues like Parkinson's, MS (multiple sclerosis), wheelchair dependent, etc.? or on medications that slow colonic transit times (narcotics, gabapentin, anticholinergic medications etc.) A: Contact your physician as you will likely need extra time and additional laxatives to complete your bowel prep. Q: What if I cannot drink large volume of liquid? A: Start your prep 2-3 hours earlier to allow yourself more time to complete the entire prep. Q: What if I had bariatric surgery? Do I still have to complete the entire prep? A: Yes, gastric bypass surgery involves the stomach & small bowel. You may need to drink smaller amounts, slower (may need more time to complete your bowel prep). Gastric bypass does not alter the length of your colon so you will need to complete the entire bowel prep, it may just take longer time to complete it. Q: What if I am on dialysis? A: Please consult your road machine operator prior to scheduling to get instructions pertinent to you. In general, dialysis patients take the Golytely bowel prep and have the procedure same day of their dialysis (colonoscopy in AM, dialysis in PM). Q: How do I know if something is considered as clear liquid diet? A: If you can pour it in a glass and you can see through it, it is considered clear liquid Q: Can I eat nuts, seeds, beans, popcorn, dried fruits, vegetables & fruits that have skin peel? A: No, you will need to not eat these items starting 3 days prior to procedure. Q: Can I take Uber/Lyft/taxi/bus home? A: An adult MUST be present with you at check-in for your colonoscopy and remain in the endoscopy area until you are discharged. You can take Uber home only if this adult escort is with you at check in, remain in the endoscopy area until you are discharged, and takes the Uber with you to home. Q: Can I sleep it off here and drive myself home? A: No, you must have an adult with you at time of procedure check in, remain in the endoscopy center during your procedure, and drive you home. You cannot drive a vehicle after your procedure the rest of the day. Q: What if I can't finish my bowel prep? A: If you cannot complete your entire bowel prep, there is high likelihood that your colonoscopy will need to be rescheduled due to inadequate prep quality. documented in this encounter [facility] 12-26-2024 Note Patient Outreach ( [facility]) AKUA KATZ ([id number]) 1970 F Date Time Provider Department 12/26/24 GISELA COFFEY ASWSTR During your visit today, we recorded the following information about you: Silvia Esquivel RN 12/26/2024 1:06 PM Signed COLONOSCOPY BOWEL PREPARATION INSTRUCTIONS MiraLAX? Your doctor has scheduled you for a colonoscopy. To have a successful colonoscopy, you must have a clean colon, that is empty. A clean colon allows your doctor to see the entire colon AND diagnose issues like polyps or cancer. For doctors, a clean colon is like driving on a mia day; a dirty colon like driving in a storm. It is very important that you follow these instructions exactly, or your colonoscopy may not be as effective, could be canceled, and you may need to do the bowel prep and colonoscopy again. TRANSPORTATION REQUIREMENTS You are receiving IV sedation. For your safety, a responsible adult escort must accompany you to and from your procedure: Your adult escort MUST be present with you at check-in for your colonoscopy. Your adult escort MUST remain in the endoscopy area until you are discharged. Your adult escort MUST transport you home once you are discharged. You are NOT allowed to operate any form of transportation (i.e. drive a car, bicycle, etc) or leave the Endoscopy Center ALONE. It is not safe to do so. If you cannot meet these requirements, your procedure will be canceled. MEDICATION REQUIREMENTS For your safety, certain medications will need to be stopped or adjusted before you can have your procedure: BLOOD THINNERS: If you take blood thinners, such as Coumadin (warfarin), Plavix (clopidogrel), Ticlid (ticlopidine hydrochloride), Agrylin (anagrelide), Xarelto (Rivaroxaban), Pradaxa (Dabigatran), Eliquis (Apixaban), or Effient (Prasugrel), contact the physician who is prescribing these medications at least 2 weeks prior to your procedure to discuss any necessary adjustments. DIABETES: If you take medications for diabetes, your dosage may need to be adjusted. If you are being treated for diabetes with insulin, diabetic pills, or other injectable medications do not take your REGULAR dose after midnight on the day of your procedure. If you are taking any other types of insulin such as Lantus, Humalog, NPH (long-acting insulin), or 70/30 insulin, take half your normal dose the day before your procedure. DIABETES/WEIGHT MANAGEMENT: If you take medications for weight-loss, your dosage may need to be adjusted Contact the doctor who prescribes this medication for further instructions. If you take medications for weight-loss like semaglutide (Ozempic, Wegovy, Rybelsus), dulaglutide (Trulicity), liraglutide (Victoza, Saxenda), exenatide (Byetta, Bydureon), or lixisenatide (Adylyxin), stop your medication 1 week prior to your procedure. If you take medications like canagliflozin (Invokana), dapagliflozin (Farxiga, Forxiga), empagliflozin (Jardiance), stop your medication 3 days prior to your procedure. If you take ertugliflozin (Steglatro) stop your medication 4 days prior to your procedure. IRON: If you take iron pills, STOP them 1 week BEFORE your procedure, may resume after. OTHER MEDS: May take all other medications (including aspirin, antibiotics, water pills / diuretics like Lasix or Metolozone, blood pressure meds, etc.) at their usual scheduled time with water. DIET REQUIREMENTS The day before your colonoscopy, you may have a clear liquid diet (see below). The day of your colonoscopy, you may continue a clear liquid diet until 3 hours before your colonoscopy. Within 3 hours of your colonoscopy, take only any medications (as above) with a sip of water. Clear Liquid Diet Broth (chicken, beef or vegetable broth or bullion. Just the broth, no solids). Water Coffee or Tea (NO milk or creamer), but sugar and sugar substitutes are allowed. Clear liquids including clear, yellow, green, blue (NO red, NO orange, NO purple) Sodas / soft drinks; Gatorade or other sports drinks Fruit juice (strained; no-pulp); Freddy-Aid or flavored drinks Plain Jell-O or other gelatins Popsicles or hard candy Bowel prep can work differently from person to person. ? Some people's bowels move slowly and they may need different instructions. Please see your doctor in office or virtually for personalized bowel prep instructions if you have: BOWEL PREPARATION (MIRALAX/GATORADE) Split Dosing Bowel Prep: This means drinking your bowel prep in two doses. Split dosing helps clean your colon better and makes it less likely that your procedure will be canceled. You will need to purchase the following (no prescriptions are needed): 64 ounces Gatorade, Propel, Crystal Lite or other noncarbonated clear liquid sports drink (NOT red, orange, or purple). Diabetic patients buy sugar-free (more content not included)... [facility] 11-30-2024 Evaluation note Diagnosis Onset Date Resolution Dysphagia acute November 30, 2024 9:52am Nausea acute November 30, 2024 9:52am Vitamin C deficiency acute November 30, 2024 9:52am Gastroesophageal reflux disease noneactive November 30, 2024 9:52am [employer] Work Phone: [phone] 592-370504-28-2025 Telephone encounter Note* Telephone Encounter - Elayne Shelton - 11/26/2024 9:52 AM EDT Spoke with patient, patient stated that she does not want to schedule mammogram order at this time [facility]04-28-2025 Miscellaneous Notes* Telephone Encounter - Elayne Shelton - 11/26/2024 9:52 AM EDT Spoke with patient, patient stated that she does not want to schedule mammogram order at this time * Telephone Encounter - Verito Yao - 09/28/2024 10:57 AM EST Left message with patient's spouse to return call. When she calls, please schedule mammogram. [facility] submitted. Verito Yao * Telephone Encounter - Rossy Flanagan MD - 09/27/2024 11:36 AM EST Filed. Rossy Flanagan MD * Telephone Encounter - Martina Graham RN - 09/27/2024 11:31 AM EST Screening mammogram order pending. Please file and will forward to PSS to get Pt scheduled. Martina Graham, RN * Telephone Encounter - Elayne Shelton - 09/27/2024 11:18 AM EST Patient coming in for Annual with she would like to have her mammogram on same day but order will . Could you please add her order. Thank you [facility] Telephone encounter Note * Telephone Encounter - Verito Yao - 09/28/2024 10:57 AM EST Left message with patient's spouse to return call. When she calls, please schedule mammogram. [facility] submitted. Verito Yao [facility]02-27-2025 Telephone encounter Note* Telephone Encounter - Rossy Flanagan MD - 09/27/2024 11:36 AM EST Filed. Rossy Flanagan MD [facility]02-27-2025 Telephone encounter Note* Telephone Encounter - Martina Graham RN - 09/27/2024 11:31 AM EST Screening mammogram order pending. Please file and will forward to PSS to get Pt scheduled. Martina Graham, MANUEL [address]27-2025 Telephone encounter Note* Telephone Encounter - Elayne Shelton - 09/27/2024 11:18 AM EST Patient coming in for Annual with she would like to have her mammogram on same day but order will . Could you please add her order. Thank you [facility]02-18-2025 NotePatient Outreach (INTMWS) AKUA KATZ ([id number]) 1970 F Date Time Provider Department 09/18/24 GISELA COFFEY INTMWS During your visit today, we recorded the following information about you: Allergies As of Date: 09/18/2024 Noted Allergy Reaction environmental [Other] 04/08/2005 Comments: seasonal PREDNISONE 10/26/2010 14 - Other: See Comments Comments: Migraine headaches Date Reviewed: 11/08/2023 Reviewed by: Parul Aj MA - Fully Assessed Visit Diagnosis:Encounter for screening mammogram for breast cancer [Z12.31] Order(s):[facility] SCREENING [facility] [[id number]] Order #: [id number] FUTURE Prescriptions as of 10/19/2024 - Drospirenone-Ethinyl Estradiol (LUIS 28) 3-0.02 mg per tablet Take 1 tablet by mouth once daily. active pills only, discard inactive pills - cyclobenzaprine (FLEXERIL) 10 mg tablet Take 1 tablet by mouth three times daily as needed for muscle spasm. - COMPOUNDED PRESCRIPTION [facility] (Drink supplement--once daily) Problem List As Of Date 09/18/2024 Noted Resolved Cervical disc disorder with radiculopathy [M50.* Migraine headache [G43.909] Osteopenia [M85.80] 01/05/2012 Chronic right shoulder pain [M25.511, G89.29] 09/25/2018 Encounter Status:Closed by REEMA CAMPOS on 10/19/24[facility] 07-16-2024 Telephone encounter Note* Telephone Encounter - Gisela Coffey MD - 07/16/2024 3:40 PM EST Received a call from Dr. Perla Stanley's office to discuss Holter monitor and EKG. Started following with Dr. Stanley this year. Fatigue and palpitations Has to stop what she is doing to rest and restore. Sleeps, exercises. [facility]12-16-2024 Miscellaneous Notes* Telephone Encounter - Gisela Coffey MD - 07/16/2024 3:40 PM EST Received a call from Dr. Perla Stanley's office to discuss Holter monitor and EKG. Started following with Dr. Stanley this year. Fatigue and palpitations Has to stop what she is doing to rest and restore. Sleeps, exercises. documented in [facility] Hospital Discharge instructions Patient Education 04/13/2024 16:55:40 Chest Pain, Uncertain Cause Uncertain Causes of Chest Pain Chest pain can happen for a number of reasons. Sometimes the cause can't be determined. If your condition does not seem serious, and your pain does not appear to be coming from your heart, your healthcare provider may recommend watching it closely. Sometimes the signs of a serious problem take moretime to appear. Many problems not related to your heart can cause chest pain. These include: Musculoskeletal. Costochondritis is an inflammation of the tissues around the ribs that can occur from trauma or overuse injuries, or a strain of the muscles of the chest wall Respiratory. Pneumonia, collapsed lung (pneumothorax), or inflammation of the lining of the chest and lungs (pleurisy) Gastrointestinal. Esophageal reflux, heartburn, ulcers, or gallbladder disease Anxiety and panic disorders Nerve compression and inflammation Rare miscellaneous problems such as aortic aneurysm (a swelling of the large artery coming out of the heart) or pulmonary embolism (a blood clot in the lungs) Home care After your visit, follow these recommendations: Rest today and avoid strenuous activity. Take any prescribed medicine as directed. Be aware of any recurrent chest pain and notice any changes Follow-up care Follow up with your healthcare provider if you do not start to feel better within 24 hours, or as advised. Call 911 Call 911 if any of these occur: A change in the type of pain: if it feels different, becomes more severe, lasts longer, or begins to spread into your shoulder, arm, neck, jaw or back Shortness of breath or increased pain with breathing Weakness, dizziness, or fainting Rapid heart beat Crushing sensation in your chest When to seek medical advice Call your healthcare provider right away if any of the following occur: Cough with dark colored sputum (phlegm) or blood Fever of 100.4 F (38 C) or higher, or as directed by your healthcare provider Swelling, pain or redness in one leg 2024-0314 [employer]. [address] [place] [address], [place] [address]. All rights reserved. This information is not intended as a substitute for professional medical care. Always follow yourhealthcare professional's instructions. Follow Up Care 04/13/2024 12:44:21 With:PERLA STANLEY DO Address: [address] [place] [address] [address] [place], [place] [address]- When:2-4 days [facility] 09-13-2024 Emergency department Discharge summary Discharge Instructions Thank you for allowing [facility] to assist you with your healthcare needs. The following is importantdischarge information regarding your hospital visit. Diagnosis from Today's Visit Chest pain What to Do Next Instructions from Your Care Team You were evaluated in the Emergency Department today for chest pain. Your evaluation has shown no signs of medical conditions requiring emergent intervention at this time, however we recommend that you follow up with your primary care physician or your chairman president and chief executive officer as soon as possible for further te sting as an outpatient. Please schedule an appointment for follow up with your primary care physician as soon as possible. Return to the Emergency Department if you experience worsening or uncontrolled chest pain, shortness of breath, light headedness, feeling faint, nausea, vomiting, or any other concerning symptoms. Thank you for choosing us for your care. No qualifying data available. Post Acute Orders No qualifying data available. You Need to Schedule the Following Appointments Follow Up with PERLA STANLEY DO When:Within 2-4 days Where:[address] [place] [address] [address] [place], [place] [address]- Allergies NKA Medications Please ask your primary doctor or pharmacist before taking any other medication not listed, including over the counter drugs, herbal medications, vitamins and or supplements as they may interact withyour home medications. What How Much When Instructions Last Dose New famotidine (Pepcid 20 mg oral tablet) 1 tab(s) by mouth Once a day Printed Prescription Please take this list to your next doctor s visit. Bring all medications you take, including over the counter medications, herbals and other supplements with you to your doctor s visit. Patients and families are reminded to discard old lists and to update any records with all medication providers or retail pharmacies. Education Materials Uncertain Causes of Chest Pain Chest pain can happen for a number of reasons. Sometimes the cause can't be determined. If your condition does not seem serious, and your pain does not appear to be coming from your heart, your healthcare provider may recommend watching it closely. Sometimes the signs of a serious problem take moretime to appear. Many problems not related to your heart can cause chest pain. These include: Musculoskeletal. Costochondritis is an inflammation of the tissues around the ribs that can occur from trauma or overuse injuries, or a strain of the muscles of the chest wall Respiratory. Pneumonia, collapsed lung (pneumothorax), or inflammation of the lining of the chest and lungs (pleurisy) Gastrointestinal. Esophageal reflux, heartburn, ulcers, or gallbladder disease Anxiety and panic disorders Nerve compression and inflammation Rare miscellaneous problems such as aortic aneurysm (a swelling of the large artery coming out of the heart) or pulmonary embolism (a blood clot in the lungs) Home care After your visit, follow these recommendations: Rest today and avoid strenuous activity. Take any prescribed medicine as directed. Be aware of any recurrent chest pain and notice any changes Follow-up care Follow up with your healthcare provider if you do not start to feel better within 24 hours, or as advised. Call 911 Call 911 if any of these occur: A change in the type of pain: if it feels different, becomes more severe, lasts longer, or begins to spread into your shoulder, arm, neck, jaw or back Shortness of breath or increased pain with breathing Weakness, dizziness, or fainting Rapid heart beat Crushing sensation in your chest When to seek medical advice Call your healthcare provider right away if any of the following occur: Cough with dark colored sputum (phlegm) or blood Fever of 100.4 F (38 C) or higher, or as directed by your healthcare provider Swelling, pain or redness in one leg 7420-4004 [employer]. [address] [place] [address], [place] [address]. All rights reserved. This information is not intended as a substitute for professional medical care. Always follow yourhealthcare professional's instructions. Additional Information VACCINATE! IT SAVES LIVES! Members of the community who have not yet received the COVID-19 vaccine and would like to receive it can visit one of [facility] vaccine clinics. There are many vaccine clinic locations within the [facility]. For locations and available times, please visit www.gettheshot.coronavirus.[place].gov/. It is important to note that some COVID mobile vaccine clinics are held outdoors and may be canceled in rainy or stormy conditions. To learn more about pediatric vaccinations (ages 5-11), we invite you to visit the [facility] webpage. [email or web address]/[email or web address] learn more about the COVID-19 vaccine, we invite you to visit the CDC website for a list of frequently asked questions. https://www.cdc.gov/coronavirus/2019-ncov/vaccines/faq.html [facility] Patient Portal Access Instructions: Stay connected with your healthcare team and access your personal medical information anytime with the [facility] Patient Portal. If you would like a full copy of your medical records please contact the [facility] Medical Records Department Tuesday through Tuesday between 8a.m. and 4:30p.m. Please follow the directions below to access the portal: 1.Access the email account you provided upon registration to the hospital.2.Look for an invitation email from [facility].3.Open the email and access the invitation link: Accept Invitation to [facility].Fill in the required baugh to create your account. Sign into [email or web address] with your username and password that you created in the above steps to stay up to date. You can then view a summary of results, a summary of your visits, and the ability to download your summaries to your computer or send the information securely to a physician. Remember that your healthcare information is confidential, so carefully consider who you will allow to register on the [employer] [facility] Patient Portal for access to your information. You can also access the [facility] Patient Portal on the [employer]. Simply click on Health Records under [employer] and then click on the [employer] logo. HOW TO SAFELY DISPOSE OF PRESCRIPTION MEDICATIONS Please use one of the following methods to safely dispose of your unused medications. 1.Use a drug disposal kit: the drug disposal pouch allows you to safely discard your old and unuseddrugs. Ask your nurse to give you one when you are discharged.2.Visit a local take-back location: Many local pharmacies and police departments have programs that collect old and unwanted prescriptiondrugs. Call your local pharmacy or go to http://trueAnthem.Cloud[employer] IDE/4N9Tz0m to find one close to you.3.Make use of household items: Use cat litter or old coffee grounds to dispose medications if other options arenot available. Mix your drugs with these household products, seal them in an airtight container andthrow it into the garbage. Call [facility]: [phone] to be sure your drugs can be disposed of in this way. Some medicines may require a different approach.4.Never flush your medications down the toilet. IF YOU HAVE BEEN PRESCRIBED AN OPIOIDS FOR PAIN If you have been prescribed an opioid (such as hydrocodone, oxycodone or morphine), it is critical to understand the possible side effects and risks of opioid pain medications. Even when taken as directed, opioids can have several side effects including: Tolerance, meaning you might need to take more of a medication for the same pain relief. Nausea, vomiting and/or constipation. Sleepiness, dizziness, dry mouth, confusion, depression or itching. Physical dependence, meaning you have withdrawal symptoms when a medication is stopped ? this can develop within a few days. KNOW YOUR RESPONSIBILITIES It is important to know exactly how much and how often to take the opioid pain medications you are prescribed. Never take opioids in higher amounts or more often than prescribed. Do not combine opioids with alcohol or other drugs that cause drowsiness, such as benzodiazepines, also known as benzos,including diazepam and alprazolam, muscle relaxants or sleep aids. Never sell or share prescriptionopioids. This is illegal. Store opioids in a secure place and out of reach of others (including children, family, friends and visitors). The last page(s) of this document has been signed and retained as a CHART COPY Signatures Patient Education Materials Chest Pain, Uncertain Cause Medication Leaflets My discharge plan and instructions have been reviewed and explained to me and I,AKUA KATZ understand my current condition and have read and understand these discharge instructions. I have received a written copy of the plan/instructions. If I have questions, I am aware that I should contact my doctor. 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 HISTORY: ORDERING SYSTEM PROVIDED HISTORY: Reason for Exam: chest pain FINDINGS: The lungs are without acute focal process. There is no effusion or pneumothorax. The cardiomediastinal silhouette is without acute process. The osseous structures are without acute process. IMPRESSION: No acute process. Interpreted by: Dave Pizano DO Preliminary Report By: Dave Pizano DO Electronically signed By Dave Pizano DO Dictated Date: 04/13/2024 1:54:39 PM Prelim Date: 04/13/2024 1:54:55 PM Sign Date: 04/13/2024 1:54:55 PM [facility]ing Provider[facility] NoteSinus rhythm Electronic Signature: CAROLANN MCNAIR MD 04/13/2024 12:54:22[facility] 04-09-2024 History of Present illness Narrative* Gisela Coffey MD - 11/08/2023 6:19 PM EDT This note was created using NoteWriter. Subjective Akua Katz is a 53 year old female. HISTORY Akua Katz is a 53 year old lady here for yearly exam and follow up appointment. Postmenopausal symptoms since was told to stop HRT because of higher BP at most recent [employer] appointment 09/06/23. Home BP 130 to 140s. Can get palpitations when BP up. Hot flashes, weight gain. Night sweats 6 times a night. Fatigue. Joints aching. Knees and right hippain.Wrists and shoulders hurt. Moods are normal. PAST MEDICAL HISTORY Diagnosis Date Cervical disc disorder with radiculopathy Migraine headache light sensitivity; mild nausea, no emesis Shoulder pain, right Chronic since fall and contusion; massotherapy helping Current Outpatient Medications Medication Sig cyclobenzaprine (FLEXERIL) 10 mg tablet Take 1 tablet by mouth three times daily as needed for muscle spasm. COMPOUNDED PRESCRIPTION [facility] (Drink supplement--once daily) Drospirenone-Ethinyl Estradiol (LUIS 28) 3-0.02 mg per tablet Take 1 tablet by mouth once daily. active pills only, discard inactive pills albuterol (PROVENTIL) 2.5 mg /3 mL (0.083 %) nebulizer solution Use 3 mL via nebulizer every 4 hours as needed for wheezing/shortness of breath. Use over 5-15minutes. No current facility-administered medications for this visit. ALLERGIES Allergen Reactions Environmental [Othe* seasonal Prednisone Other: See Comments Migraine headaches FAMILY HISTORY Problem Relation Age of Onset None Mother Hypertension Father Stroke Maternal Grandmother Cancer Maternal Grandmother Non-Hodgkins Lymphoma Social History Tobacco Use Smoking status: Never Smokeless tobacco: Never Vaping Use Vaping Use: Never used Substance Use Topics Alcohol use: No Drug use: No Review of Systems Objective BP 134/81 Pulse 91 Resp 16 Ht 159 cm (5' 2.6) Wt 72.6 kg (160 lb) LMP 08/16/2023 (Exact Date) SpO2 97% BMI 28.71 kg/m Last 5 Encounter Wt Readings: Date: Wt: 11/08/2023 72.6 kg (160 lb) 09/06/2023 70.3 kg (155 lb) 11/16/2022 68.9 kg (152 lb) 09/01/2022 70.9 kg (156 lb 3.2 oz) 08/12/2022 71.2 kg (157 lb) No waist measurement recorded Estimated body mass index is 28.71 kg/m as calculated from the following: Height as of this encounter: 159 cm (5' 2.6). Weight as of this encounter: 72.6 kg (160 lb). Last 5 Encounter BP Readings: Date: BP: 11/08/2023 134/81[average[ 09/06/2023 130/80 11/16/2022 122/58 09/01/2022 142/88 08/12/2022 114/76 Physical Exam Vitals reviewed. Constitutional: Appearance: Normal appearance. She is well-developed. HENT: Head: Normocephalic and atraumatic. Right Ear: Tympanic membrane, ear canal and external ear normal. Left Ear: Tympanic membrane, ear canal and external ear normal. Nose: Nose normal. Mouth/Throat: Mouth: Mucous membranes are moist. Eyes: Conjunctiva/sclera: Conjunctivae normal. Pupils: Pupils are equal, round, and reactive to light. Neck: Thyroid: No thyromegaly. Vascular: No carotid bruit. Cardiovascular: Rate and Rhythm: Normal rate and regular rhythm. Pulses: Normal pulses. Heart sounds: Normal heart sounds. No murmur heard. No friction rub. No gallop. Pulmonary: Effort: Pulmonary effort is normal. Breath sounds: Normal breath sounds. Abdominal: General: Bowel sounds are normal. There is no distension. Palpations: Abdomen is soft. There is no mass. Tenderness: There is no abdominal tenderness. Musculoskeletal: General: No deformity. Normal range of motion. Right lower leg: No edema. Left lower leg: No edema. Lymphadenopathy: Cervical: No cervical adenopathy. Skin: General: Skin is warm and dry. Coloration: Skin is not jaundiced or pale. Findings: No rash. Neurological: General: No focal deficit present. Mental Status: She is alert and oriented to person, place, and time. Cranial Nerves: No cranial nerve deficit. Sensory: No sensory deficit. Motor: No abnormal muscle tone. Coordination: Coordination normal. Deep Tendon Reflexes: Reflexes normal. Psychiatric: Attention and Perception: Attention and perception normal. Mood and Affect: Mood and affect normal. Speech: Speech normal. Behavior: Behavior normal. Thought Content: Thought content normal. Cognition and Memory: Cognition normal. Judgment: Judgment normal. Assessment and Plan Encounter Diagnosis ICD-10-CM 1. Routine medical exam Z00.00 2. Perimenopause N95.1 COMP METABOLIC PANEL CBC LIPID PANEL BASIC TSH BLD T4 FREE/FREE THYROX T3 FREE BLD SED RATE WESTERGREN C-REACTIVE PROTEIN (CRP) RHEUMATOID FACTOR BL EDSON BY IFA SCREEN VITAMIN D 25 HYDROXY Might be postmenopausal but just stopped OCPs recently and was cycling till then. Hot flashes and night sweats and weight gain and joint pain mostly. 3. Osteopenia, unspecified location M85.80 COMP METABOLIC PANEL CBC TSH BLD T4 FREE/FREE THYROX T3 FREE BLD VITAMIN D 25 HYDROXY Discussed management to prevent progression 4. Elevated blood pressure reading in office without diagnosis of hypertension R03.0 COMP METABOLICPANEL CBC LIPID PANEL BASIC TSH BLD T4 FREE/FREE THYROX T3 FREE BLD SED RATE WESTERGREN C-REACTIVE PROTEIN (CRP) RHEUMATOID FACTOR BL EDSON BY IFA SCREEN VITAMIN D 25 HYDROXY Monitor. Diet, exercise and gradual weight loss discussed.Treat if develops persistent hypertension 5. Polyarthralgia M25.50 TSH BLD T4 FREE/FREE THYROX T3 FREE BLD SED RATE WESTERGREN C-REACTIVE PROTEIN (CRP) RHEUMATOID FACTOR BL EDSON BY IFA SCREEN Evaluation with labs. Further eval and treatment as indicated Patient here for yearly exam and follow up. Above issues addressed with patient. Patient involved in shared decision making for management of medical issues. History and medications reviewed. Epic updated as needed Refills taken care of and meds adjusted as indicated after reviewed history, exam and labs. Health Maintenance reviewed. Updated record and/or ordered tests as recorded. Encouraged on efforts at healthy diet and regular exercise and adequate sleep. Meds for hot flashes as indicated. Gisela Coffey MD [facility] History of Present illness Narrative* Rossy Flanagan MD - 09/06/2023 3:25 PM EST Career Services Coordinator offered: Patient declines. Akua is a 53 year old who presents for an annual gynecologic exam. Patient reports irritation during and after menses. This started 3 months ago. Postmenopausal: No. Menstrual cycle every 28-30 days Flow 5 days HRT use: No. Last Pap: 07/09/2019 normal HPV: 07/09/2019 negative History of abnormal pap: No Last mammogram: 2023 normal OB History T0 L2 SAB0 IAB0 Ectopic0 Multiple0 Live Births0 Typing Checker History LMP: 08/16/2023 (Exact Date), Having periods Age at Menarche: Age at First : Age at Menopause: Typing Checker History Comments: Sexual Activity: Yes; Male Contraception: Vasectomy PAST MEDICAL HISTORY Diagnosis Date Cervical disc disorder with radiculopathy Migraine headache light sensitivity; mild nausea, no emesis Shoulder pain, right Chronic since fall and contusion; massotherapy helping PAST SURGICAL HISTORY Procedure Laterality Date DELIVERY ONLY 1994,1997 , low transverse LIGJ DIVJ &/EXCJ VARICOSE VEIN CLUSTER 1 LEG Varicose Vein Surgery FAMILY HISTORY Problem Relation Age of Onset None Mother Hypertension Father Stroke Maternal Grandmother Cancer Maternal Grandmother Non-Hodgkins Lymphoma SOCIAL HISTORY Social History Tobacco Use Smoking status: Never Smokeless tobacco: Never Vaping Use Vaping Use: Never used Substance Use Topics Alcohol use: No Drug use: No REVIEW OF SYSTEMS Abdomen: No abdominal pain, nausea, vomiting, diarrhea, or constipation. No bloating, early satiety, indigestion, or increased flatulence. Bladder: No dysuria, gross hematuria, urinary frequency, urinary urgency, or incontinence Breast: No breast lumps, nipple d/c, overlying skin changes, redness or skin retraction Allergies and current medication updated:Yes EXAM: BP 130/80 Ht 5' 2 (1.58m) Wt 155 lb (70.3kg) LMP 08/16/2023 BMI 28.34 kg/(m^2). GENERAL: pleasant, female in no apparent distress BREAST: soft, non-tender, symmetric, no dominant mass, normal nipple-areolar complex, no lymphadenopathy, and no nipple discharge CHEST: Normal inspiratory effort ABDOMEN: soft, non-tender, and no masses PELVIC: external genitalia normal, normal Bartholin's glands, urethra, Cass's glands, no vulvar lesions, no cervical lesions, good vaginal support, physiologic discharge present, normal appearing perineal body and perianal region BIMANUAL: uterus normal size, shape and consistency, no adnexal masses, and non-tender RECTOVAGINAL: rectovaginal exam negative for any masses or nodularity. NEURO: alert and oriented x3,exam grossly non-focal EXTREMITIES: normal ASSESSMENT/PLAN: 1) Health maintenance: Pap done with HPV. Mammogram up to date Nutrition, exercise and routine health maintenance exams reviewed. Colon cancer screening: declined 2) Follow up one year or sooner as needed 3) Borderline BP - attempted to call patient after visit to advise her to stop ocps and she agrees with plan Rossy Flanagan MD documented [facility] Miscellaneous Notes* Telephone Encounter - Rehana Olmos LPN - 05/04/2023 10:23 AM EDT Pt calling and stated that she was only given enough refills of below pended medication for 6 months. Pt not due to be seen until 08/24. Pt is needing to start new package tomorrow. Call only if problems. Rehana Olmos LPN documented in this encounterCos[facility]01-12-2023 Miscellaneous Notes* Letter - Mammography Coordinator - 08/12/2022 3:15 PM EST August 12, 2022 PID: [id number] Akua Katz [address] [place] [address] Dear Ms. Katz, We are pleased to inform you that the results of your recent breast imaging exam on 08/12/2022 are normal. Your mammogram demonstrates that you have dense breast tissue, which could hide abnormalities. Dense breast tissue, in and of itself, is a relatively common condition. Therefore, this information is not provided to cause undue concern; rather, it is to raise your awareness and promote discussion with your health care provider regarding the presence of dense breast tissue in addition to other riskfactors. Early detection of cancer is very important. We also understand recommendations regarding breast cancer screening are controversial. Please discuss with your primary care provider which strategy is best for you and whether a mammogram is right for you. Your imaging studies and report will be kept on file at [facility] as part of your permanent medical record and are available for your continuing care. Thank you for allowing us to help in meeting your health care needs. Sincerely, Dr. Katz Interpreting Radiologist [facility] (Normal over 40) documented in this encounterCoshocton [facility]01-12-2023 History of Present illness Narrative* Edith Mathis MD - 08/12/2022 1:29 PM EST Akua is a 52 year old who presents for an annual gynecologic exam without complaints. [place] OCPs and has a menses most months. No hot flashes Postmenopausal: not certain, on ocps HRT use: no, OCPs. Last Pap: 07/09/2019 normal HPV: 07/09/2019 negative History of abnormal pap: No Last mammogram: 2022 pending Sexually active: Yes OB History T0 L2 SAB0 IAB0 Ectopic0 Multiple0 Live Births0 Typing Checker History LMP: 07/19/2022 (Exact Date), Having periods Age at Menarche: Age at First : Age at Menopause: Typing Checker History Comments: Sexual Activity: Yes; Male Contraception: Vasectomy PAST MEDICAL HISTORY Diagnosis Date Cervical disc disorder with radiculopathy Migraine headache light sensitivity; mild nausea, no emesis Shoulder pain, right Chronic since fall and contusion; massotherapy helping PAST SURGICAL HISTORY Procedure Laterality Date DELIVERY ONLY 1994,1997 , low transverse LIGJ DIVJ &/EXCJ VARICOSE VEIN CLUSTER 1 LEG Varicose Vein Surgery FAMILY HISTORY Problem Relation Age of Onset None Mother Hypertension Father Stroke Maternal Grandmother Cancer Maternal Grandmother Non-Hodgkins Lymphoma SOCIAL HISTORY Social History Tobacco Use Smoking status: Never Smokeless tobacco: Never Vaping Use Vaping Use: Never used Substance Use Topics Alcohol use: No Drug use: No REVIEW OF SYSTEMS Abdomen: No abdominal pain, nausea, vomiting, diarrhea, or constipation. No bloating, early satiety, indigestion, or increased flatulence. Bladder: No dysuria, gross hematuria, urinary frequency, urinary urgency, or incontinence Breast: No breast lumps, nipple d/c, overlying skin changes, redness or skin retraction Allergies and current medication updated:Yes EXAM: BP 114/76 Ht 5' 2.5 (1.59m) Wt 157 lb (71.2kg) LMP 07/19/2022 BMI 28.24 kg/(m^2). GENERAL: pleasant, female in no apparent distress HEENT: Normocephalic, atraumatic, mucus membranes moist, and no lesions NECK: Supple, full range of motion, no adenopathy, and thyroid normal DERMATOLOGY: Normal, without lesions, non-icteric, and non-hirsute BREAST: soft, non-tender, symmetric, no dominant mass, normal nipple-areolar complex, no lymphadenopathy, and no nipple discharge CHEST: Normal inspiratory effort ABDOMEN: soft, non-tender, and no masses PELVIC: external genitalia normal, normal Bartholin's glands, urethra, Cass's glands, no vulvar lesions, no cervical lesions, good vaginal support, physiologic discharge present, normal appearing perineal body and perianal region BIMANUAL: uterus normal size, shape and consistency, no adnexal masses, and non-tender RECTOVAGINAL: deferred. NEURO: alert and oriented x3,exam grossly non-focal EXTREMITIES: normal ASSESSMENT/PLAN: 1) Health maintenance: Pap/HPV up to date. Mammogram ordered Colon cancer screening: up to date with screening 2) Follow up one year or sooner as needed Edith Mathis MD documented in this encounterCos[facility]01-12-2023 History of Present illness Narrative* Cristal London, RT(R) - 08/12/2022 12:30 PM EST Radiology Service Progress Note PATIENT NAME: Akua Katz DATE OF SERVICE: August 12, 2022 TIME: 12:48 PM PATIENT IDENTITY VERIFICATION COMPLETED USING TWO (2) IDENTIFIERS: Name and Date of confirmedby patient verbally. FALL SCREENING: Has the patient had 2 falls in the last year or 1 fall with injury or currently using an Ambulatory Assistive Device (Walker, Cane, Wheelchair, Crutches, etc.)? No PATIENT GENDER DATA: Female. status: : No status: NO. PATIENT RELEVANT IMPLANT DATA REVIEWED: Not Applicable RADIOLOGY DEPARTMENT: Mammography PERIPHERAL IV DATA: Not applicable SIGNED BY: RT Sylvester(R) August 12, 2022 12:48 PM documented in this encounterCoshocton [facility]04-26-2022 History of Present illness Narrative* Viktoria Angel RT(R) - 11/24/2021 11:40 AM EDT Radiology Service Progress Note PATIENT NAME: Akua Katz DATE OF SERVICE: November 24, 2021 TIME: 11:36 AM PATIENT IDENTITY VERIFICATION COMPLETED USING TWO (2) IDENTIFIERS: Name and Date of confirmedby patient verbally. FALL SCREENING: Has the patient had 2 falls in the last year or 1 fall with injury or currently using an Ambulatory Assistive Device (Walker, Cane, Wheelchair, Crutches, etc.)? No PATIENT GENDER DATA: Female. status: : No status: NO. PATIENT RELEVANT IMPLANT DATA REVIEWED: Yes RADIOLOGY DEPARTMENT: General X-ray: Exam(s) Completed: Chest X-Ray PERIPHERAL IV DATA: Not applicable SIGNED BY: RT Soto(R) November 24, 2021 11:36 AM documented in this encounterCoshocton [facility]04-26-2022 History of Present illness Narrative* Burak Shaffer APRN.HOUSE RN - 11/24/2021 11:21 AM EDT Subjective HPI Nontoxic-appearing female presents to the urgent care chief complaint cough. Duration of symptoms 1month. Associated symptoms cough nasal congestion. Patient states cough is most bothersome at night. Does have cough throughout the day but is improved. Was seen virtually placed on amoxicillin. Lastdose of amoxicillin 500 mg bid was for 11/20. Patient states symptoms did improve slightly. Denies any known sick contacts. Denies worsening symptoms. Denies any OTC medication use. Denies history of smoking. Denies history of asthma COPD. Denies any fever body aches chills productive cough chest pain shortness of breath pleuritic pain hemoptysis nausea vomiting abdominal pain change in bowel or bladder habits. Denies history of DVT PE. Denies history of cancer recent long travel. No calf pain or swelling. Past medical history prescription medication use allergies reviewed. Denies chance of . .Patient presents with: Cough: Pt reported cough x1 mth SOB, denied chest pain Hx ATB 10/2021 ongoing sxs PAST MEDICAL HISTORY Diagnosis Date Cervical disc disorder with radiculopathy Migraine headache light sensitivity; mild nausea, no emesis Shoulder pain, right Chronic since fall and contusion; massotherapy helping PAST SURGICAL HISTORY Procedure Laterality Date DELIVERY ONLY 1994,1997 , low transverse LIGJ DIVJ &/EXCJ VARICOSE VEIN CLUSTER 1 LEG Varicose Vein Surgery ALLERGIES Environmental [Other] and Prednisone MEDICATIONS ibuprofen (MOTRIN ORAL) Take by mouth. Drospirenone-Ethinyl Estradiol (LUIS 28) 3-0.02 mg per tablet Take 1 tablet by mouth once daily. active pills only, discard inactive pills cyclobenzaprine (FLEXERIL) 10 mg tablet Take 1 tablet by mouth three times daily as needed for muscle spasm. COMPOUNDED PRESCRIPTION [facility] (Drink supplement--once daily) FAMILY HISTORY Problem Relation Age of Onset None Mother Hypertension Father Stroke Maternal Grandmother Cancer Maternal Grandmother Non-Hodgkins Lymphoma Social History Tobacco Use Smoking status: Never Smoker Smokeless tobacco: Never Used Vaping Use Vaping Use: Never used Substance Use Topics Alcohol use: No Drug use: No BP 120/70 Pulse 86 Temp 36.4 C (97.5 F) Resp 16 Wt 71 kg (156 lb 9.6 oz) LMP 11/07/2021 SpO2 98% BMI 28.19 kg/m Review of Systems Constitutional: Negative for chills, fever and malaise/fatigue. HENT: Positive for congestion. Negative for ear discharge, ear pain, sinus pain and sore throat. Eyes: Negative for blurred vision, pain, discharge and redness. Respiratory: Positive for cough. Negative for hemoptysis, sputum production, shortness of breath, wheezing and stridor. Cardiovascular: Negative for chest pain. Gastrointestinal: Negative for abdominal pain, diarrhea, nausea and vomiting. Musculoskeletal: Negative for myalgias. Skin: Negative for itching and rash. Neurological: Negative for dizziness and headaches. Objective Physical Exam Constitutional: General: She is not in acute distress. Appearance: She is not diaphoretic. HENT: Head: Normocephalic. Nose: Nose normal. Mouth/Throat: Mouth: Mucous membranes are moist. Pharynx: Oropharynx is clear. No oropharyngeal exudate or posterior oropharyngeal erythema. Eyes: Conjunctiva/sclera: Conjunctivae normal. Pupils: Pupils are equal, round, and reactive to light. Cardiovascular: Rate and Rhythm: Normal rate and regular rhythm. Heart sounds: Normal heart sounds. Pulmonary: Effort: Pulmonary effort is normal. No tachypnea, accessory muscle usage or respiratory distress. Breath sounds: Normal breath sounds. No stridor. No wheezing, rhonchi or rales. Chest: Chest wall: No tenderness. Abdominal: Palpations: Abdomen is soft. Tenderness: There is no abdominal tenderness. Musculoskeletal: Cervical back: Normal range of motion and neck supple. No rigidity or tenderness. Lymphadenopathy: Cervical: No cervical adenopathy. Skin: General: Skin is warm and dry. Neurological: Mental Status: She is alert and oriented to person, place, and time. ASSESSMENT/PLAN: 1. Cough - ICD9: 786.2, ICD10: R05.9 (primary diagnosis) - XR CHEST 2V FRONTAL/LAT 2. Bronchitis - ICD9: 490, ICD10: J40 Wells PE/ DVT criteria 0. Low suspicion for emboli. Patient will be placed on doxycycline for possible bacterial origin of bronchitis.. chest x-ray was negative. Will follow up with PCP 7 days if symptoms are not improving. Patient was educated on supportive therapies. Patient will follow up with primary care provider as needed. Patient was instructed to immediately proceed to emergency room for any new, worsening, or symptoms lasting longer than anticipated. The patient's clinical presentationis otherwise unremarkable at this time. Based on exam and clinical finding, the patient is stable for discharge. Plan of care was discussed with patient. Patient verbalizes understanding and agrees to plan of care. This note was generated using [employer] software. It may contain errors in wording, punctuation, or spelling. Burak Shaffer APRN.LUI documented in this encounterCosho[facility]on [facility] CenterEvaluation + Plan note No data available for this section [facility] Evaluation note* Diagnosis Cough- Primary Bronchitis Bronchitis, not specified as acute or chronic documented in this encounter [facility]* Diagnosis Encounter for gynecological examination (general) (routine) without abnormal findings- Primary Encounter for screening mammogram for breast cancer documented in this encounter [facility]* Diagnosis Encounter for gynecological examination (general) (routine) without abnormal findings Encounter for screening mammogram for breast cancer documented in this encounter [facility]* Diagnosis Encounter for gynecological examination (general) (routine) without abnormal findings- Primary Encounter for screening mammogram for breast cancer Encounter for screening for malignant neoplasm of cervix Screening for malignant neoplasm of the cervix Special screening examination for human papillomavirus (HPV) documented in this encounter [facility]* Diagnosis Routine medical exam- Primary Routine general medical examination at a health care facility Perimenopause Symptomatic menopausal or female climacteric states Osteopenia, unspecified location Elevated blood pressure reading in office without diagnosis of hypertension Polyarthralgia Pain in joint, multiple sites [facility]* Diagnosis Cough documented in this encounter [facility]* Diagnosis Type 2 diabetes mellitus without complications (Multi) documented in this encounter [facility] Work Phone: Evaluation note* Diagnosis Encounter for screening mammogram for breast cancer documented in this encounter [facility]* Diagnosis Breast screening- Primary Breast screening, unspecified documented in this encounter [facility] note* Diagnosis Screening for colorectal cancer- Primary Special screening for malignant neoplasms, colon documented in this encounter [facility] for referral (narrative)* Diagnostic Procedure Only (Routine) - Pending Review Specialty Diagnoses / Procedures Referred By Contac t Referred To Contact [facility] Diagnoses Encounter for gynecological examination (general) (routine) without abnormal findings Encounter for screening mammogram for breast cancer Procedures TOÑA SCREENING W ADRIEL SCREENING DIGITAL BREAST TOMOSYNTHESIS BI SCREENING MAMMOGRAPHY BI 2-VIEW BREAST INC Edith Carlisle MD [address] [place] [address] [facility] [address] [place] [id number] Referral ID Status Reason Start Date Expiration Date Visits Requested Visits Authorized [id number] Pending Review Auto-Generat ed Referral 08/12/2022 09/11/2023 1 1 [facility] for referral (narrative)* Diagnostic Procedure Only (Routine) - Closed Specialty Diagnoses / Procedures Referred By Effie encarnacion Referred To Contact [facility] Diagnoses Encounter for gynecological examination (general) (routine) without abnormal findings Encounter for screening mammogram for breast cancer Procedures TOÑA SCREENING W ADRIEL SCREENING BREAST DGTL ADRIEL UNI/BILAT ADD ON SCREENING MAMMOGRAPHY BI 2-VIEW BREAST INC Edith Carlisle MD [address] [place] [address] [facility] [place] [address] Referral ID Status Reason Start Date Expiration Date Visits Requested Visits Authorized [id number] Closed Financial Clearance Required - OON Payor OON Notification Letter Patient cleared - OON Required Payment Collected 08/18/2021 07/31/2023 1 1 [facility] for referral (narrative)* Diagnostic Procedure Only (Routine) - Pending Review Specialty Diagnoses / Procedures Referred By Effie encarnacion Referred To Contact [facility] Diagnoses Encounter for screening mammogram for breast cancer Procedures TOÑA SCREENING W ADRIEL SCREENING DIGITAL BREAST TOMOSYNTHESIS BI SCREENING MAMMOGRAPHY BI 2-VIEW BREAST INC Rossy Becker MD [address] [place] [address] [facility] [address] [place] [address] Referral ID Status Reason Start Date Expiration Date Visits Requested Visits Authorized [id number] Pending Review Auto-Generat ed Referral 09/06/2023 10/05/2024 1 1 [facility] for referral (narrative)No reason for referral information availableButternut [facility] [employer] [facility] Work Phone: [employer] for visit Narrative* Diagnostic Procedure Only (Routine) - Closed Specialty Diagnoses / Procedures Referred By Effie encarnacion Referred To Contact [facility] Diagnoses Encounter for gynecological examination (general) (routine) without abnormal findings Encounter for screening mammogram for breast cancer Procedures TOÑA SCREENING W ADRIEL SCREENING BREAST DGTL ADRIEL UNI/BILAT ADD ON SCREENING MAMMOGRAPHY BI 2-VIEW BREAST INC Edith Carlisle MD [address] [place] [address] [facility] [address] [place] [address] Referral ID Status Reason Start Date Expiration Date Visits Requested Visits Authorized [id number] Closed Financial Clearance Required - OON Payor OON Notification Letter Patient cleared - OON Required Payment Collected 08/18/2021 07/31/2023 1 1 [facility] for visit Narrative* Diagnostic Procedure Only (Routine) - Denied Specialty Diagnoses / Procedures Referred By Effie encarnacion Referred To Contact Radiology / [facility] Diagnoses xr chest rm 5 Procedures XR CHEST Burak Shaffer APRN.HOUSE RN [address] [place] [address] Radio General [facility] [address] [place] [address] Referral ID Status Reason Start Date Expiration Date Visits Re quested Visits Authorized [id number] Denied 11/24/2021 02/22/2022 1 0 [facility] for visit Narrative* Imaging (Routine) - Pending Review Specialty Diagnoses / Procedures Referred By Effie encarnacion Referred To Contact Radiology Diagnoses Type 2 diabetes mellitus without complications (Multi) Procedures CT cardiac scoring wo IV contrast Perla Stanley, [address] [facility] [address] [place] [address] Phone: tel: fax: Referral ID Status Reason Start Date Expiration Date Visits Requested Visits Authorized [id number] Pending Review Perform Procedure 04/18/2024 04/18/2025 1 1 [facility] Work Phone: Summary Purpose Family History No Family History Records Found Relationship Condition Age at Onset Recorded Date/T stephen father Alcoholism Unknown Depression Unknown mother Arthritis Unknown Rheumatoid arthritis Unknown Hypertension Unknown Disorder of respiratory system Unknown grandmother Malignant neoplasm Unknown Advance Directives No Advanced Directives Records FoundNo Advanced Directives Records FoundNo Advanced Directives Records FoundNo Advanced Directives Records Found Chief Complaint and Reason for Visit Chief Complaint Admit Date Acid reflux November 30, 2024 9:52am Test Result January 03, 2025 2:28p m Reason for Visit Admit Date Dysphagia November 30, 2024 9:52am Nausea November 30, 2024 9:52am Vitamin C deficiency November 30, 2024 9:52a m Gastroesophageal reflux disease November 30, 2024 9:52am Additional Source Comments Source Comments (unrecognize d section and content) In the event this informatio n is protected by the Federal Confidentiality of Alcohol and Drug Abuse Patient Records regulations: The Federal rules restrict any use of the information to criminally investigate or prosecute any alcohol or drug abuse patient.[facility] Center[facility] the event this information is protected by the Federal Confidentiality of Alcohol and Drug Abuse Patient Records regulations: The Federal rules restrict any use of the information to criminally investigate or prosecute any alcohol or drug abuse patient.[facility] CenterIn the event this information is protected by the Federal Confidentiality of Alcohol and Drug Abuse Patient Records regulations: The Federal rules restrict any use of the information to criminally investigate or prosecute any alcohol or drug abuse patient.[facility] CenterIn the event this information is protected by the Federal Confidentiality of Alcohol and Drug Abuse Patient Records regulations: The Federal rules restrict any use of the information to criminally investigate or prosecute any alcohol or drug abuse patient.[facility] CenterIn the event this information is protected by the Federal Confidentiality of Alcohol and Drug Abuse Patient Records regulations: The Federal rules restrict any use of the information to criminally investigate or prosecute any alcohol or drug abuse patient.[facility] CenterIn the event this information is protected by the Federal Confidentiality of Alcohol and Drug Abuse Patient Records regulations: The Federal rules restrict any use of the information to criminally investigate or prosecute any alcohol or drug abuse patient.[facility] CenterIn the event this information is protected by the Federal Confidentiality of Alcohol and Drug Abuse Patient Records regulations: The Federal rules restrict any use of the information to criminally investigate or prosecute any alcohol or drug abuse patient.[facility] CenterIn the event this information is protected by the Federal Confidentiality of Alcohol and Drug Abuse Patient Records regulations: The Federal rules restrict any use of the information to criminally investigate or prosecute any alcohol or drug abuse patient.[facility] CenterIn the event this information is protected by the Federal Confidentiality of Alcohol and Drug Abuse Patient Records regulations: The Federal rules restrict any use of the information to criminally investigate or prosecute any alcohol or drug abuse patient.[facility] CenterIn the event this information is protected by the Federal Confidentiality of Alcohol and Drug Abuse Patient Records regulations: The Federal rules restrict any use of the information to criminally investigate or prosecute any alcohol or drug abuse patient.[facility] CenterIn the event this information is protected by the Federal Confidentiality of Alcohol and Drug Abuse Patient Records regulations: The Federal rules restrict any use of the information to criminally investigate or prosecute any alcohol or drug abuse patient.[facility] Center[facility] the event this information is protected by the Federal Confidentiality of Alcohol and Drug Abuse Patient Records regulations: The Federal rules restrict any use of the information to criminally investigate or prosecute any alcohol or drug abuse patient.[facility] Reason for Visit (unrecogniz ed section and content) Reason Comments Cough Pt reported cough x1 mth SOB, denied chest pain Hx ATB 10/2021 ongoing sxs Specialty Diagnoses / Procedures Referred By Contac t Referred To Contact Internal Medicine / URGENT CARE CLINIC Diagnoses cough x 1 month Procedures URGENT CARE Self Burak Shaffer APRN.HOUSE RN [address] [place] [address] Referral ID Status Reason Start Date Expiration Date Visits Re quested Visits Authorized [id number] Denied 11/24/2021 02/22/2022 1 0 Specialty Diagnoses / Procedures Referred By Contac t Referred To Contact LOCAL DRIVER Diagnoses annual exam Procedures EST [facility] ANNUAL PATIENT Self Edith Mathis MD [address] [place] [address] Referral ID Status Reason Start Date Expiration Date Visits Requested Visits Authorized [id number] Closed Financial Clearance Required - OON Payor OON Notification Letter Patient Cleared - CCN Request Cancelled - Pre Qualified for HCAP/501R/FA or Patient Payment Collected Patient cleared - OON Required Payment Collected 08/12/2022 07/31/2023 1 1 Reason Onset Date Comments Refill Request 05/04/2023 Reason Comments Yearly Exam Specialty Diagnoses / Procedures Referred By Contac t Referred To Contact LOCAL DRIVER Diagnoses annual Procedures annual Edith Mathis MD [address] [place] [address] Nursing Secretary [employer] [address] [place] [address] Referral ID Status Reason Start Date Expiration Date V isits Requested Visits Authorized [id number] Closed Financial Clearance Required - Self Pay Patient Cleared - [employer] 07/28/2023 10/26/2023 1 1 Reason Comments Yearly Exam Reason Onset Date Comments Outpatient Colonoscopy 12/26/2024 Patient i s overdue for colorectal cancer screening since 06-22-2024. (screening was last done Please schedule open access colonoscopy. Care Teams (unrecognized sec tion and content) [employer] Relationship Specialty Start Date End Date Gisela Coffey MD [address] [place] [address] PCP - General 01/17/03 [employer] Relationship Specialty Start Date End Date Gisela Coffey MD [address] [place] [address] PCP - General 01/17/03 [employer] Relationship Specialty Start Date End Date Gisela Coffey MD [address] [place] [address] PCP - General 01/17/03 [employer] Relationship Specialty Start Date End Date Gisela Coffey MD [address] [place] [address] PCP - General 01/17/03 [employer] Relationship Specialty Start Date End Date Gisela Coffey MD [address] [place] [address] PCP - General 01/17/03 [employer] Relationship Specialty Start Date End Date Gisela Coffey MD [address] [place] [address] PCP - General 01/17/03 [employer] Relationship Specialty Start Date End Date Gisela Coffey MD [address] [place] [address] PCP - General 01/17/03 [employer] Relationship Specialty Start Date End Date Gisela Coffey MD [address] [place] [address] PCP - General 01/17/03 [employer] Relationship Specialty Start Date End Date Gisela Coffey MD [address] [place] [address] PCP - General 01/17/03 Chery Garica, FLAME CUTTING MACHINE OPERATOR.GROUP WORK PROGRAM DIRECTOR [address] [place] [address] System Support Developer Internal Medicine 07/09/24 Layla German FLAME CUTTING MACHINE OPERATOR.HOUSE RN [address] [place] [address] System Support Developer Internal Medicine 07/09/24 [employer] Relationship Specialty Start Date End Date Gisela Coffey MD [address] [place] [address] PCP - General 01/17/03 Chery Garcia, FLAME CUTTING MACHINE OPERATOR.GROUP WORK PROGRAM DIRECTOR [address] [place] [address] System Support Developer Internal Medicine 07/09/24 Layla German FLAME CUTTING MACHINE OPERATOR.HOUSE RN [address] [place] [address] [facility] Internal Medicine 07/09/24 [employer] Relationship Specialty Start Date End Date Gisela Coffey MD [address] [place] [address] PCP - General 01/17/03 Chery Garcia, DEONTE.GROUP WORK PROGRAM DIRECTOR [address] [place] [address] System Support Developer Internal Medicine 07/09/24 12/18/24 Layla German APRN.HOUSE RN [address] [place] [address] [facility] Internal Medicine 07/09/24 10/19/24 Layla German APRN.HOUSE RN [address] [place] [address] [facility] Internal Medicine 10/23/24 Chery Garcia, DEONTE.GROUP WORK PROGRAM DIRECTOR [address] [place] [address] [facility] Internal Medicine 12/19/24 Team Status: Active Member Role Status Dates Dr. Perla Stanley DO Primary Care Provider Active Team Status: Inactive Member Role Status Dates Dr. Perla Stanley DO Primary Care Provider Active Start: November 30, 2024 End: November 30, 2024 Dr. Perla Stanley DO Referring Provider Active Start: November 30, 2024 End: November 30, 2024 Dr. Alexx Garcia , Attending Provider Active Start: November 30, 2024 End: November 30, 2024 Team Status: Inactive Member Role Status Dates Dr. Perla Stanley DO Primary Care Provider Active Start: December 21, 2024 End: December 21, 2024 Dr. Perla Stanley DO Referring Provider Active Start: December 21, 2024 End: December 21, 2024 Dr. Alexx Garcia DO Attending Provider Active Start: December 21, 2024 End: December 21, 2024 Team Status: Inactive Member Role Status Dates Dr. Perla Stanley DO Primary Care Provider Active Start: January 03, 2025 End: January 03, 2025 Dr. Perla Stanley DO Referring Provider Active Start: January 03, 2025 End: January 03, 2025 Dr. Alexx Garcia DO Attending Provider Active Start: January 03, 2025 End: January 03, 2025 [employer] Relationship Specialty Start Date End Date Gisela Coffey MD [address] [place], [place] [id number] PCP - General 01/17/03 Layla German FLAME CUTTING MACHINE OPERATOR.HOUSE RN [address] [place], [place] [id number] System Support Developer Internal Medicine 10/23/24 Chery Garcia, FLAME CUTTING MACHINE OPERATOR.GROUP WORK PROGRAM DIRECTOR [address] [place], [place] [id number] System Support Developer Internal Medicine 12/19/24 INFORMATION SOURCE (unrecogn ized section and content) DATE CREATED AUTHOR 04/20/2024 [facility] DATE CREATED AUTHOR AUTHOR'S ORGANIZ ATION 05/28/2024 [facility] DATE CREATED AUTHOR AUTHOR'S ORGANIZ ATION 01/28/2025 [facility] DATE CREATED AUTHOR AUTHOR'S ORGANIZ ATION 03/30/2025 [facility] Goals (unrecognized section and content) Goals may be documented in a n alternate section FOR RECORDS PERTAINING TO PATIENTS WHO ARE OR HAVE BEEN ENROLLED IN A CHEMICAL DEPENDENCY/SUBSTANCEABUSE PROGRAM, SOME INFORMATION MAY BE OMITTED. This clinical summary was aggregated from multiple sources. Caution should be exercised in using it in the provision of clinical care. This summary normalizes information from multiple sources, and as a consequence, information in this document may materially change the coding, format and clinical context of patient data. In addition, data may be omitted in some cases. CLINICAL DECISIONS SHOULD BE BASED ON THE PRIMARY CLINICAL RECORDS. [facility]. provides no warranty or guarantee of the accuracy or completeness of information in this document.
[2025-04-02] MEDS: Lactated Ringers 1,000 ML 15 ML IV (06:08)
--- NOTE | 2025-04-02 06:28 | PRE.ANES_ITS ---
ASA Classification* ASA Classification ASA Classification: 2 Assessment & Plan Anesthesia* Anesthesia Assessment Anesthesia Assessment: Discussed sedation and/or anesthesia options, risks, benefits, and alternatives with patient/parents/legal guardian/POA. Questions invited. The patient/parents/legal guardian/POA seems to understand and agrees to proceed with anesthesia plan. Reviewed the physical assessment, medical history, allergy history and patient home medications list prior to surgery/procedure/anesthetic and documented any changes. Performed airway and anesthesia risk assessments. Anesthesia Type Anesthesia Type: MAC History Source History Obtained from:: Patient and Chart Anesthesia Focused Assessment* Temperature: 97.8 F Pulse Rate: 72 Blood Pressure: 135/82 Respiratory Rate: 16 Pulse Ox: 100 Oxygen Delivery Method: Room Air Airway Assessment Mouth opens: >3 cm Mallampati Score: I Teeth Condition: Intact Neck Range of motion (ROM): Full ROM Labs Anesthesia Preop lab: CBC WBC 11.0 K/mm3 (4.4-11.0) 04/21/23 13:45 04/21/23 RBC 4.31 M/mm3 (4.2-5.4) 04/21/23 13:45 04/21/23 Hgb 12.5 g/dL (12.0-15.0) 04/21/23 13:45 04/21/23 Hct 37.6 % (37-47) 04/21/23 13:45 04/21/23 Plt Count 432 K/mm3 (150-450) 04/21/23 13:45 04/21/23 CHEMISTRY Potassium 3.8 mmol/L (3.5-5.1) 04/21/23 13:45 04/21/23 Sodium 140 mmol/L (136-145) 04/21/23 13:45 04/21/23 BUN 9 mg/dL (7-18) 04/21/23 13:45 04/21/23 Creatinine 0.82 mg/dL (0.55-1.02) 04/21/23 13:45 04/21/23 Glucose 155 mg/dL (74-106) H 04/21/23 13:45 04/21/23 COAG Pre-Assessment Diagnosis/Proposed Procedure Planned Operative Procedure(s): EGD PH PROBE Anesthesia History 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 When Was Last Pacemaker Check QUESTION #4 FULL TEXT: You/Your Family Experience fever (hyperthermia) with Anesthesia Last Oral Intake Last Oral intake: Last Oral Intake NPO since 21:00 04/02/25 05:58 Meds taken in AM with sips of water? Meds patient instructed to take am of surgery PONV PONV - digital hardware design engineer: PONV - digital hardware design engineer Female Yes 03/28/25 14:01 HX of Motion Sickness Yes 03/28/25 14:01 HX of N/V After Surgery Yes 03/28/25 14:01 Non-Smoker Yes 03/28/25 14:01 Duration of Surgery greater No 03/28/25 14:01 than 60 minutes Number of Risk Factors 4 03/28/25 14:01 PONV Score Severe Risk 03/28/25 14:01 Height & Weight Height & Weight: Anesthesia: Height & Weight Height 5 ft 3 in 04/02/25 05:58 Weight: 68.039 kg 04/02/25 05:58 Body Mass Index (BMI) 26.5 04/02/25 05:58 Respiratory Assessment Respiratory Assessment - digital hardware design engineer: Respiratory Tract Infection Hx - digital hardware design engineer Hx Respiratory Tract Infection No 03/28/25 14:01 STOP Sleep Apnea STOP Sleep Apnea - digital hardware design engineer: STOP Sleep Apnea - digital hardware design engineer Hx Hypertension No 03/28/25 14:01 Hx Sleep Apnea No 03/28/25 14:01 CPAP BIPAP Do you snore loudly (louder Yes 03/28/25 14:01 than talking or can be heard Do you often feel tired/ Yes 03/28/25 14:01 fatigued/ sleepy during daytime? Has anyone observed you stop No 03/28/25 14:01 breathing during sleep? STOP Results Positive 03/28/25 14:01 QUESTION #5 FULL TEXT : Do you snore loudly (louder than talking or can be heard through closed doors)? 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 confused, unrespo /Reproduction History /Reproductive History - digital hardware design engineer: /Reproductive Hx- digital hardware design engineer Hx Now No 03/28/25 14:01 Gestational Age (in weeks): EDC: Hx Hx Para Hx Section SAB No 03/28/25 14:01 Active Medications Active Medications: Current Medications Generic Name Dose Route Start Last Admin Trade Name Freq PRN Reason Stop Dose Admin Lactated Ringer's 1,000 mls @ 15 mls/hr 04/02/25 05:45 04/02/25 06:08 IV 15 mls/hr .Q48H KD Administration PFSH Medical History Post-menopausal Wears glasses Wears contact lenses Arthritis Low iron Migraine headache Back pain Difficulty swallowing Gastric reflux Asthma History of pain when walking Non-smoker History of irregular heartbeat History of Holter monitoring Chest pain Osteopenia Home Medications ?Medication ?Instructions ?Recorded ?Last Taken ?Type ascorbic acid (vitamin C) 500 mg 500 mg PO QDAY Unknown History capsule cholecalciferol (vitamin D3) 125 125 mcg PO QDAY 11/30 Unknown History mcg (5,000 unit) capsule mecobalamin (vitamin B12) 5,000 5,000 mcg PO DAILY Unknown History mcg chewable tablet progesterone micronized 200 mg 225 mg PO QHS 03/28/25 Unknown History capsule Allergy/AdvReac Type Severity Reaction Status Date / Time No Known Allergies Allergy Verified 04/02/25 05:57 Family History Father Alcoholism Depression Mother Arthritis Rheumatoid arthritis Hypertension Respiratory disease Grandmother Cancer Surgical History History of Hx of varicose vein ligation and stripping Social History Smoking Status: Never smoker alcohol intake: never substance use type: does not use what type of physical activity do you participate in: walking and weight training Review of Systems (Anesthesia) ROS Narrative System reviewed and no additional complaints, except as documented.
--- NOTE | 2025-04-02 06:30 | EGD_PTH ---
PATIENT: OCTAVIO KATZ LOC: EN U#:[id number] AGE/SX: 54/F ROOM: RE04/02/[address]: Dr. Alexx Garcia DO : 1970 BED: DIS: 04/02/2025 SPEC #: [id number] RECD: 04/02/25 08:01 STATUS: LA NENA ARIANNE #: [id number] JOSE: 04/02/25 06:[address]: Alexx Garcia DEPT: SURGICAL PATHOLOGY RECD BY: Mike Funez ENTERED: 04/02/25 10:27 SP TYPE: EGD BIOPSY VIKTOR DR: Dr. Perla Tony DO Tissues: A - Esophagus, NOS B - Duodenum, NOS Procedures: Surgery Specimen Level IV HEADER OPERATION: EGD, biopsy, PH probe placement PRE-OP DIAGNOSIS: Gastroesophageal reflux disease, dysphagia, nausea, vitamin C deficiency TISSUE SUBMITTED: A- Distal esophagus biopsy, B- Duodenum biopsy MICROSCOPIC DIAGNOSIS A. Distal esophagus, biopsy: Squamous mucosa with reactive changes. Columnar mucosa with reactive changes and focal goblet cell metaplasia - see note. Note: The diagnosis depends on the location of the biopsy and the extent of the mucosal irregularity. If the biopsy originates from the tubular esophagus and the mucosal irregularity extends at least 1 cm above the top of the gastric folds, this represents Valdovinos mucosa. If the biopsy originates from the gastric cardia and/or the mucosal irregularity is less than 1 cm in extent, this represents intestinal metaplasia. B. Duodenum, biopsy: Normal villous architecture Negative for increased intraepithelial lymphocytes. MICROSCOPIC DESCRIPTION Slides are reviewed. GROSS DESCRIPTION A. Received in fixative is one container labeled with the patient's name and designated Distal esophagus biopsy. The specimen consists of three irregular fragments of light marinelli soft tissue that measure 0.3 to 0.5 cm. The specimen is totally submitted in one cassette. B. Received in fixative is one container labeled with the patient's name and designated Duodenum biopsy. The specimen consists of one irregular fragment of light marinelli soft tissue that measures 0.4 cm. The specimen is totally submitted in one cassette. OK 04/02/2025 CPT:53063t6
--- NOTE | 2025-04-02 06:38 | PCM.HP.STD ---
HPI - General General Date of Admission: 04/02/25 Date of Service: 04/02/25 Chief Complaint: dysphagia and GERD HPI Narrative OCTAVIO KATZ, is a 54 F who presents for refractory GERD and dysphagia. *BGI established 5.2.25 pt presents with worsening acid reflux. Is currently taking Pepcid 20mg and reports this is not effective for her symptoms. Reports that when she is laying down she feels like she is choking on acid and that it stays in her throat. manometry 5.23.25 normal OV 6.5.25 pt reports ongoing intermittent difficulty swallowing. Here to discuss test results. [facility] Medical History Post-menopausal Wears glasses Wears contact lenses Arthritis Low iron Migraine headache Back pain Difficulty swallowing Gastric reflux Asthma History of pain when walking Non-smoker History of irregular heartbeat History of Holter monitoring Chest pain Osteopenia Home Medications ?Medication ?Instructions ?Recorded ?Last Taken ?Type ascorbic acid (vitamin C) 500 mg 500 mg PO QDAY 11/30/24 Unknown History capsule cholecalciferol (vitamin D3) 125 125 mcg PO QDAY 11/30/24 Unknown History mcg (5,000 unit) capsule mecobalamin (vitamin B12) 5,000 5,000 mcg PO DAILY 03/28/25 Unknown History mcg chewable tablet progesterone micronized 200 mg 225 mg PO QHS 03/28/25 Unknown History capsule Allergy/AdvReac Type Severity Reaction Status Date / Time No Known Allergies Allergy Verified 04/02/25 05:57 Family History Father Alcoholism Depression Mother Arthritis Rheumatoid arthritis Hypertension Respiratory disease Grandmother Cancer Surgical History History of Hx of varicose vein ligation and stripping Social History Smoking Status: Never smoker alcohol intake: never substance use type: does not use what type of physical activity do you participate in: walking and weight training ROS Constitutional Constitutional: Denies fatigue, fever(s), poor appetite, weight gain or weight loss Gastrointestinal Gastrointestinal: Denies belching, bloating, change in bowel habits, change in stool character, chewing difficulty, coffee ground emesis, constipation, cramping, diarrhea, dyspepsia, dysphagia, early satiety, excessive flatus, fecal incontinence, heartburn, hematemesis, hematochezia, hemorrhoids, loose stools, melena, nausea, odynophagia, rectal bleeding, tenesmus, vomiting or weight changes Vital Signs Vital Signs Vital Signs: 04/02/25 05:58 04/02/25 05:58 04/02/25 06:35 Temperature 97.8 F 97.8 F Temperature Source Temporal Pulse Rate 72 72 Respiratory Rate 16 16 Respiratory Pattern Normal Blood Pressure 135/82 H 135/82 H Blood Pressure Mean 99 Blood Pressure Source Monitor Blood Pressure Position Sitting Blood Pressure Location Right Arm Pulse Ox 100 100 Oxygen Delivery Method Room Air Room Air Weight Weight: 150 lb Body Mass Index (BMI) 26.5 Physical Exam Const alert, oriented x3, no apparent distress and healthy appearing General Appearance: cooperative GI normal to inspection, nondistended, normoactive bowel sounds, soft to palpation, non-tender and non-distended Percussion: normal to percussion Rectal Exam: deferred Assessment & Plan Assessment/Plan (1) Dysphagia: (2) Nausea: (3) GERD (gastroesophageal reflux disease): PLAN: Assessment and Plan Assessment and Plan (1) Gastroesophageal reflux disease: (2) Dysphagia: Status: Acute (3) Nausea: Status: Acute (4) Vitamin C deficiency: Status: Acute Plan: Very pleasant 54-year-old with past medical history of intermittent esophageal dysphagia. She has no history of previous CVA, neck trauma, surgery. She does have a history of possible gastroesophageal reflux disease. She was placed on omeprazole for 3 months by her physician. She actually got better but when she stopped the medication when she stopped the medication her symptoms came back. Recommending esophageal manometry because her symptoms sound more like esophageal dysmotility disorder than reflux disease. If that is normal then we will do EGD with [place]ira study. Plan Her esophageal manometry was normal. We will set her up for an EGD with Sequeira study.
--- NOTE | 2025-04-02 07:05 | OP.PROVAT_ITS ---
04/02/2025 Perla Tony [address] [place] [address] Re : Upper GI endoscopy procedure for Akua Brooks Dear Dr. Tony This procedure was performed on Wednesday, April 02, 2025. My impressions and recommendations are as follows: Impressions : - Z-line irregular, 37 cm from the incisors. Biopsied. - No gross lesions in the entire esophagus. - Normal stomach. - Duodenal erosion without bleeding. Biopsied. Recommendations : - Discharge patient to home. - Resume previous diet. - Continue present medications. - Await pathology results. My findings are described in the full procedure note, which is enclosed. If I can be of further assistance, please feel free to contact me at . Sincerely, Alexx Garcia, 04/02/2025 7:03:50 AM This report has been signed electronically.
--- NOTE | 2025-04-02 07:05 | OP.EGD_ITS ---
Patient Name: Akua Brooks Procedure Date: 04/02/2025 6:24 AM Date of : 1970 Age: 54 Procedure: Upper GI endoscopy Indications: Functional Dyspepsia, Heartburn Providers: Alexx Garcia DO Referring MD: Perla Tony Medicines: Monitored Anesthesia Care Patient Profile: This is a 54 year old female. Refer to note in patient chart for documentation of history and physical. Patient has symptoms of chronic dyspepsia, acute heartburn and chronic nausea. Complications: No immediate complications. Procedure: Pre-Anesthesia Assessment: - Prior to the procedure, a History and Physical was performed, and patient medications and allergies were reviewed. The patient is competent. The risks and benefits of the procedure and the sedation options and risks were discussed with the patient. All questions were answered and informed consent was obtained. Patient identification and proposed procedure were verified by the physician in the pre-procedure area. Mental Status Examination: alert and oriented. Airway Examination: normal oropharyngeal airway and neck mobility. Respiratory Examination: clear to auscultation. CV Examination: normal. Prophylactic Antibiotics: The patient does not require prophylactic antibiotics. Prior Anticoagulants: The patient has taken no anticoagulant or antiplatelet agents except for NSAID medication. ASA Grade Assessment: II - A patient with mild systemic disease. After reviewing the risks and benefits, the patient was deemed in satisfactory condition to undergo the procedure. The anesthesia plan was to use monitored anesthesia care (MAC). Immediately prior to administration of medications, the patient was re-assessed for adequacy to receive sedatives. The heart rate, respiratory rate, oxygen saturations, blood pressure, adequacy of pulmonary ventilation, and response to care were monitored throughout the procedure. The physical status of the patient was re-assessed after the procedure. After obtaining informed consent, the endoscope was passed under direct vision. Throughout the procedure, the patient's blood pressure, pulse, and oxygen saturations were monitored continuously. The gastroscope was introduced through the mouth, and advanced to the second part of duodenum. The upper GI endoscopy was accomplished without difficulty. The patient tolerated the procedure well. Scope In: 6:51:49 AM Scope Out: 6:57:37 AM Total Procedure Duration Time 0 hours 5 minutes 48 seconds Findings: The Z-line was irregular and was found 37 cm from the incisors. Biopsies were taken with a cold forceps for histology. Verification of patient identification for the specimen was done. Estimated blood loss was minimal. No gross lesions were noted in the entire esophagus. The ROCHE capsule with delivery system was introduced through the mouth and advanced into the esophagus, such that the ROCHE pH capsule was positioned 37 cm from the incisors, which was 6 cm proximal to the GE junction. Suction was applied to the well of the ROCHE pH capsule to suck in the adjacent mucosa of the esophagus using the external vacuum pump set at a minimum vacuum pressure of 550 mmHg for 30 seconds. The ROCHE pH capsule was then deployed by depressing the plunger on top of the handle to advance the locking pin into the mucosa, thereby attaching the capsule to the esophagus. The plunger was then rotated a quarter turn clockwise to release the capsule from the delivery system. The delivery system was then withdrawn. Endoscopy was utilized for probe placement and diagnostic evaluation. The entire examined stomach was normal. A single localized erosion without bleeding was found in the duodenal bulb. Biopsies were taken with a cold forceps for histology. Verification of patient identification for the specimen was done. Estimated blood loss was minimal. Impression: - Z-line irregular, 37 cm from the incisors. Biopsied. - No gross lesions in the entire esophagus. - Normal stomach. - Duodenal erosion without bleeding. Biopsied. Recommendation: - Discharge patient to home. - Resume previous diet. - Continue present medications. - Await pathology results. Procedure Code(s): --- Professional --- 48776, Esophagogastroduodenoscopy, flexible, transoral; with biopsy, single or multiple CPT copyright 2021 [employer]. All rights reserved. The codes documented in this report are preliminary and upon marketing communication manager review may be revised to meet current compliance requirements. Alexx Garcia DO 04/02/2025 7:03:50 AM This report has been signed electronically. Number of Addenda: 0 Note Initiated On: 04/02/2025 6:24 AM
--- NOTE | 2025-04-02 07:06 | PCM.POST.ANE ---
Anesthesia: Postop Eval I Current Vital Signs Temperature: 97.6 F Pulse Rate: 72 Blood Pressure: 118/67 Respiratory Rate: 16 Pulse Ox: 97 Oxygen Delivery Method: Room Air Assessment Airway patent: Yes Spontaneous unlabored respirations: Yes Mental status: Awake and Calm nausea: No Vomiting: No Anesthesia Complication: No Fluid Hydration Crystalloid volume administer (ml): 300 Total IV fluid infused: 300 Progress Note Anesthesia document: Postop Eval 1 completed: Yes
--- NOTE | 2025-04-02 14:34 | PCM.POSTANE2 ---
Anesthesia Postop Eval I Sum Postop Eval Completion status Anesthesia document: Postop Eval 1 completed: Yes Anesthesia Postop Eval I Summary Anesthesia Postop Eval I Summary: Anesthesia Postop Eval I: Assessment Summary Airway patent Yes 04/02/25 07:07 [email or web address] Spontaneous unlabored Yes 04/02/25 07:07 [email or web address] respirations Mental status Awake,Calm 04/02/25 07:07 [email or web address] nausea No 04/02/25 07:07 [email or web address] Vomiting No 04/02/25 07:07 [email or web address] Anesthesia Postop Eval I: Fluid Summary Crystalloid volume administer 300 04/02/25 07:07 [email or web address] (ml) Colloids volume administered ( ml) Blood Product volume administered (ml) Total IV fluid infused 300 04/02/25 07:07 [email or web address] Anesthesia Postop Eval I: Summary Notes Anesthesia Complication No 04/02/25 07:07 [email or web address] Anesthesia Complication Comment: Post-operative progress note Anesthesia: Postop Eval II Evaluation Mental status: Awake Pain Level: 0 nausea: No Vomiting: No
== END 2025-04-02 07:42 | disposition home or self-care (01) ==
LOC: EN 05:24 → AC 05:26
PROVIDERS: PCP Internal Medicine; Referring Provider Internal Medicine; Visit Provider Internal Medicine Gastroenterology
PROC: (CPT 43235; principal; 2025-04-02 06:25)
DX: K22.70 Barrett's esophagus without dysplasia (principal); R13.10 Dysphagia, unspecified; K21.9 Gastro-esophageal reflux disease without esophagitis; K26.9 Duodenal ulcer, unspecified as acute or chronic, without hemorrhage or perforation; J45.909 Unspecified asthma, uncomplicated; E54 Ascorbic acid deficiency; Z79.899 Other long term (current) drug therapy; Z78.0 Asymptomatic menopausal state
CPT/HCPCS: 43239; 88305; J2405